=== PATIENT | male | born 1935 | race Two or more races ===

== ENCOUNTER 2023-09-06 19:27 | Emergency (ER) | payer OTHER ==
[~2023-09-06] VITALS: Ht 172.7 cm; Wt 86.7 kg
[2023-09-06 20:33] LABS: Basophils # (auto) 0.1 10 ^3/uL (0-0.2); Basophils % (auto) 1.2 % (0.0-2.0); Eosinophils # (auto) 0.5 10 ^3/uL (0-0.8); Hemoglobin 8.9 g/dL (13.5-17.5); Lymphocytes % (auto) 24.3 % (10.0-50.0); Mean Corpuscular Hemoglobin 28.9 pg (28.0-32.0); Mean Corpuscular Hgb Conc. 31.9 g/dL (32.0-36.0); Mean Corpuscular Volume 90.5 fL (80.0-100.0); Monocytes # (auto) 0.8 10 ^3/uL (0-1.3); Monocytes % (auto) 9.5 % (0.0-12.0); Neutrophils # (auto) 4.9 10 ^3/uL (1.6-8.6); Nucleated Red Blood Cells % 0.1 %; Red Blood Cells 3.09 10^6/uL (4.5-5.90); Red Cell Distribution Width 15.4 % (11.8-14.3); White Blood Cell 8.3 10^3/uL (4.4-10.8)
[2023-09-06 20:54] LABS: Alanine Aminotransferase 15 U/L (7-40); Albumin 4.5 g/dL (3.2-4.8); Alkaline Phosphatase 81 U/L (46-116); Anion Gap 9 (5-15); Aspartate Aminotransferase 25 U/L (13-40); BUN/Creatinine Ratio 24.6 (10.0-20.0); Bilirubin, Total 0.7 mg/dL (0.2-1.0); Blood Urea Nitrogen 32 mg/dL (9-23); Calcium 9.4 mg/dL (8.5-10.1); Carbon Dioxide 26 mmol/L (20-30); Chloride 106 mmol/L (98-107); Glucose 157 mg/dL (74-106); Potassium 4.5 mmol/L (3.5-5.1); Sodium 141 mmol/L (136-145); Total Protein 7.7 g/dL (5.7-8.2)
[2023-09-06 21:36] LABS: Large Platelets FEW; Platelet Estimate Decreased
[2023-09-06] MEDS ORDERED: SODIUM CHLORIDE 0.9% 500 ML IV ONE (23:00)
[2023-09-07 01:20] VITALS: BP 126/57; PULSE 117; RESP 18; TEMP 98.4; O2SAT 98
[2023-09-07] MEDS ORDERED: CEPH500C PO (01:45)
[2023-09-07] MEDS ORDERED: SODIUM CHL 0.9% 500 ML IV ONE ×2 (02:30→02:35)
[2023-09-07 03:05] LABS: Urine Bacteria FEW /hpf (None Seen); Urine Blood 3+ /uL (Negative); Urine Clarity HAZY (Clear); Urine Color Yellow (Yellow); Urine Protein, UAD 1+ (Negative); Urine Specific Gravity 1.017 (1.001-1.035); Urine Urobilinogen Normal (Negative); Urine WBC 219 /hpf (0 - 3); Urine WBC Clumps PRESENT /hpf (None Seen); Urine pH 5.5 (5.0-8.0)
== END 2023-09-07 07:02 | disposition home or self-care (01) ==
LOC: ER 19:27
DX: D64.9 Anemia, unspecified (principal); R31.0 Gross hematuria
CPT/HCPCS: 36415; 71045; 80053; 81001; 83880; 84484; 85025; 93005; 96360; 99285; J7040

== ENCOUNTER 2023-10-11 22:26 | Emergency (ER) | payer OTHER ==
[~2023-10-11] VITALS: Ht 177.8 cm; Wt 87.7 kg
[~2023-10-11 22:26] MED LIST: CEPH500C PO
[2023-10-11 22:27] VITALS: BP 158/78; PULSE 137; RESP 18; O2SAT 97
== END 2023-10-11 23:21 | disposition left against medical advice (07) ==
LOC: ER 22:26
DX: R33.9 Retention of urine, unspecified (principal); Z53.21 Procedure and treatment not carried out due to patient leaving prior to being seen by health care provider

== ENCOUNTER 2024-03-06 16:02 | Inpatient (IN) | payer OTHER ==
[~2024-03-06] VITALS: Ht 182.9 cm; Wt 32.1 kg
[2024-03-06 19:48] LABS: Basophils # (auto) 0.1 10 ^3/uL (0-0.2); Eosinophils # (auto) 0 10 ^3/uL (0-0.8); Hemoglobin 7.5 g/dL (13.5-17.5); Mean Corpuscular Volume 72.8 fL (80.0-100.0); Monocytes # (auto) 0.8 10 ^3/uL (0-1.3)
[2024-03-06 19:50] LABS: Basophils % (auto) 1.4 % (0.0-2.0); Eosinophils % (auto) 0.2 % (0.0-7.0); Hematocrit 24.9 % (41.0-53.0); Lymphocytes # (auto) 1.1 10 ^3/uL (0.4-5.4); Lymphocytes % (auto) 13.6 % (10.0-50.0); Mean Corpuscular Hemoglobin 21.8 pg (28.0-32.0); Monocytes % (auto) 10.4 % (0.0-12.0); Neutrophils # (auto) 5.8 10 ^3/uL (1.6-8.6); Neutrophils % (auto) 74.4 % (37.0-80.0); Nucleated Red Blood Cells % 0.1 %; Red Blood Cells 3.42 10^6/uL (4.5-5.90); Red Cell Distribution Width 19.2 % (11.8-14.3); White Blood Cell 7.8 10^3/uL (4.4-10.8)
[2024-03-06 20:07] LABS: INR 1.06 (0.9-1.15); Partial Thromboplastin Time 24.2 SEC (24.5-34.5); Prothrombin Time 11.2 sec (9.3-11.8)
[2024-03-06 20:08] LABS: Alanine Aminotransferase 12 U/L (7-40); Albumin 4.1 g/dL (3.2-4.8); Alkaline Phosphatase 91 U/L (46-116); Anion Gap 11 (5-15); Aspartate Aminotransferase 17 U/L (13-40); BUN/Creatinine Ratio 17.5 (10.0-20.0); Bilirubin, Total 0.7 mg/dL (0.2-1.0); Blood Urea Nitrogen 32 mg/dL (9-23); Calcium 9.4 mg/dL (8.7-10.4); Carbon Dioxide 20 mmol/L (20-30); Chloride 104 mmol/L (98-107); Glucose 304 mg/dL (74-106); Lipase 48 U/L (12-53); Potassium 4.2 mmol/L (3.5-5.1); Sodium 135 mmol/L (136-145); Total Protein 7.6 g/dL (5.7-8.2)
[2024-03-06 20:13] LABS: Lactic Acid w/Reflex 4.8 mmol/L (0.4-2.0)
[2024-03-06] MEDS ORDERED: ACETAMINOPHEN 325 MG TAB PO PRN (21:30)
[2024-03-06] MEDS ORDERED: ONDANSETRON HCL 4 MG/2 ML VIAL IV PRN (21:30)
[2024-03-06 21:53] LABS: Hemoglobin 7.6 g/dL (13.5-17.5)
[2024-03-06 21:54] LABS: Hematocrit 25.1 % (41.0-53.0)
[2024-03-07] VITALS (13 sets, daily range): BP systolic 80–132; BP diastolic 41–88; PULSE 80–120; RESP 15–22; TEMP 97.3–99.5; O2SAT 94–100
[2024-03-07] MEDS: SODIUM CHLORIDE 0.9% 1,000 ML IV ONE (00:46)
[2024-03-07] MEDS: HYDROcodone-ACET 5/325MG TAB PO PRN (00:46)
[2024-03-07] MEDS: PIPERACILLIN-TAZOB 3.375GM 100 ML IV ONE (02:17)
[2024-03-07] MEDS ORDERED: METF-372 PO (02:56)
[2024-03-07 05:57] LABS: Alanine Aminotransferase 13 U/L (7-40); Albumin 3.6 g/dL (3.2-4.8); Alkaline Phosphatase 81 U/L (46-116); Anion Gap 13 (5-15); Aspartate Aminotransferase 16 U/L (13-40); BUN/Creatinine Ratio 14.8 (10.0-20.0); Bilirubin, Total 0.9 mg/dL (0.2-1.0); Carbon Dioxide 18 mmol/L (20-30); Chloride 106 mmol/L (98-107); Potassium 4.3 mmol/L (3.5-5.1); Sodium 137 mmol/L (136-145); Total Protein 6.5 g/dL (5.7-8.2)
[2024-03-07 06:01] LABS: Blood Urea Nitrogen 43 mg/dL (9-23); Glucose 188 mg/dL (74-106)
[2024-03-07 06:09] LABS: Basophils # (auto) 0.1 10 ^3/uL (0-0.2); Basophils % (auto) 1.2 % (0.0-2.0); Eosinophils # (auto) 0 10 ^3/uL (0-0.8); Eosinophils % (auto) 0.5 % (0.0-7.0); Hematocrit 22.4 % (41.0-53.0); Lymphocytes # (auto) 0.4 10 ^3/uL (0.4-5.4); Lymphocytes % (auto) 6.5 % (10.0-50.0); Mean Corpuscular Hemoglobin 21.6 pg (28.0-32.0); Mean Corpuscular Hgb Conc. 30.1 g/dL (32.0-36.0); Mean Corpuscular Volume 71.7 fL (80.0-100.0); Monocytes # (auto) 0.1 10 ^3/uL (0-1.3); Monocytes % (auto) 1.6 % (0.0-12.0); Neutrophils # (auto) 5.8 10 ^3/uL (1.6-8.6); Neutrophils % (auto) 90.2 % (37.0-80.0); Nucleated Red Blood Cells % 0.4 %; Red Blood Cells 3.13 10^6/uL (4.5-5.90); Red Cell Distribution Width 19.4 % (11.8-14.3); White Blood Cell 6.4 10^3/uL (4.4-10.8)
[2024-03-07 06:15] LABS: Hemoglobin 6.8 g/dL (13.5-17.5)
[2024-03-07 06:47] LABS: Hypochromia Moderate; Platelet Estimate Decreased
[2024-03-07 06:48] LABS: Ovalocytes FEW; Stomatocytes Few
[2024-03-07] MEDS: cefTRIAXone 1GM/50ML D5W 50 ML IV SCH (09:00)
[2024-03-07] MEDS: SODIUM CHLORIDE 0.9% 1,000 ML IV SCH (10:15)
[2024-03-07] MEDS: SODIUM CHLORIDE 0.9% 500 ML IV ONE ×2 (10:30→19:56)
[2024-03-07] MEDS ORDERED: DexAMETHasone SOD PHOS 10MG/1ML VIAL INJ ONE (14:37)
[2024-03-07] MEDS ORDERED: ONDANSETRON HCL 4 MG/2 ML VIAL ONE (14:37)
[2024-03-07] MEDS ORDERED: GLYCOPYRROLATE 0.2 MG/ML 1ML VIAL ONE (14:37)
[2024-03-07] MEDS ORDERED: PROPOFOL 10 MG/ML 20 ML IV ONE (14:37)
[2024-03-07] MEDS ORDERED: LIDOCAINE 2% (LOCAL ANESTH.) PF 5ml SDV ONE (14:37)
[2024-03-07] MEDS ORDERED: ROCURONIUM 10MG/ML 10ML VIAL IV ONE (14:37)
[2024-03-07 14:57] LABS: Basophils # (auto) 0 10 ^3/uL (0-0.2); Basophils % (auto) 0.2 % (0.0-2.0); Eosinophils # (auto) 0 10 ^3/uL (0-0.8); Hemoglobin 7.1 g/dL (13.5-17.5)
[2024-03-07 15:01] LABS: Hematocrit 23.2 % (41.0-53.0); Lymphocytes # (auto) 1.1 10 ^3/uL (0.4-5.4); Lymphocytes % (auto) 5.4 % (10.0-50.0); Mean Corpuscular Hgb Conc. 30.6 g/dL (32.0-36.0); Mean Corpuscular Volume 75.2 fL (80.0-100.0); Monocytes # (auto) 1.8 10 ^3/uL (0-1.3); Monocytes % (auto) 9.2 % (0.0-12.0); Neutrophils # (auto) 16.6 10 ^3/uL (1.6-8.6); Neutrophils % (auto) 85.2 % (37.0-80.0); Red Blood Cells 3.08 10^6/uL (4.5-5.90); White Blood Cell 19.5 10^3/uL (4.4-10.8)
[2024-03-07 15:17] LABS: Red Cell Distribution Width 20.4 % (11.8-14.3)
[2024-03-07] MEDS ORDERED: fentaNYL CITRATE 100 MCG/2 ML VL ONE (15:32)
[2024-03-07] MEDS ORDERED: PHENYLEPHRINE HCL 10 MG/ML VL ONE ×2 (15:33→16:13)
[2024-03-07] MEDS ORDERED: SUGAMMADEX 200mg/2ml Vial (100MG/ML) IV ONE (15:33)
[2024-03-07] MEDS ORDERED: SODIUM CHLORIDE LOCK 10 ML ONE ×2 (15:33→16:13)
[2024-03-07] MEDS ORDERED: KETAMINE 50mg/ML 1ml syringe ONE (15:36)
[2024-03-07] MEDS: CIPROFLOXACIN 400MG/200ML 200 ML IV ONE (15:43)
[2024-03-07] MEDS ORDERED: ePHEDrine SULFATE 50 MG/ML AMP IV PRN (17:30)
[2024-03-07] MEDS ORDERED: LABETALOL HCL 5 MG/ML 4ML SYRINGE IV PRN (17:30)
[2024-03-07] MEDS ORDERED: fentaNYL CITRATE 100 MCG/2 ML VL IV PRN (17:30)
[2024-03-07] MEDS ORDERED: NALOXONE HCL 0.4 MG/ML VIAL IV PRN (17:30)
[2024-03-07] MEDS ORDERED: FLUMAZENIL 0.1 MG/ML INJ 10ML MDV IV PRN (17:30)
[2024-03-07] MEDS ORDERED: hydrALAZINE HCL 20 MG/ML VL IV PRN (17:30)
[2024-03-07] MEDS ORDERED: ONDANSETRON HCL 4 MG/2 ML VIAL IV PRN (17:30)
[2024-03-07] MEDS ORDERED: HYDROmorphone HCL 2 MG/ML VL/or syr IV PRN (17:30)
[2024-03-07 19:56] LABS: Basophils # (auto) 0 10 ^3/uL (0-0.2); Basophils % (auto) 0.3 % (0.0-2.0); Eosinophils # (auto) 0 10 ^3/uL (0-0.8); Hemoglobin 7.7 g/dL (13.5-17.5); Lymphocytes # (auto) 0.8 10 ^3/uL (0.4-5.4); Lymphocytes % (auto) 4.6 % (10.0-50.0); Mean Corpuscular Hemoglobin 23.6 pg (28.0-32.0); Mean Corpuscular Hgb Conc. 30.7 g/dL (32.0-36.0); Mean Corpuscular Volume 76.8 fL (80.0-100.0); Monocytes # (auto) 0.7 10 ^3/uL (0-1.3); Monocytes % (auto) 4.2 % (0.0-12.0); Neutrophils # (auto) 15.5 10 ^3/uL (1.6-8.6); Neutrophils % (auto) 90.9 % (37.0-80.0); Nucleated Red Blood Cells % 0.1 %; Red Blood Cells 3.26 10^6/uL (4.5-5.90); Red Cell Distribution Width 19.5 % (11.8-14.3)
[2024-03-08] VITALS (16 sets, daily range): BP systolic 89–103; BP diastolic 45–65; PULSE 75–95; RESP 16–19; TEMP 97.7–98.9; O2SAT 93–98
[2024-03-08 07:42] LABS: Alanine Aminotransferase 10 U/L (7-40); Albumin 3.2 g/dL (3.2-4.8); Alkaline Phosphatase 53 U/L (46-116); Anion Gap 10 (5-15); Aspartate Aminotransferase 16 U/L (13-40); BUN/Creatinine Ratio 14.4 (10.0-20.0); Blood Urea Nitrogen 41 mg/dL (9-23); Calcium 8.1 mg/dL (8.7-10.4); Carbon Dioxide 17 mmol/L (20-30); Chloride 108 mmol/L (98-107); Glucose 213 mg/dL (74-106); Magnesium 1.6 mg/dL (1.6-2.6); Sodium 135 mmol/L (136-145)
[2024-03-08 07:43] LABS: Total Protein 5.9 g/dL (5.7-8.2)
[2024-03-08 08:01] LABS: Basophils # (auto) 0 10 ^3/uL (0-0.2); Hemoglobin 7.5 g/dL (13.5-17.5)
[2024-03-08 08:03] LABS: Basophils % (auto) 0.1 % (0.0-2.0); Eosinophils # (auto) 0 10 ^3/uL (0-0.8); Lymphocytes # (auto) 0.9 10 ^3/uL (0.4-5.4); Lymphocytes % (auto) 5.2 % (10.0-50.0); Mean Corpuscular Hgb Conc. 31.3 g/dL (32.0-36.0); Mean Corpuscular Volume 76.7 fL (80.0-100.0); Monocytes # (auto) 1.1 10 ^3/uL (0-1.3); Monocytes % (auto) 6.4 % (0.0-12.0); Neutrophils # (auto) 14.8 10 ^3/uL (1.6-8.6); Neutrophils % (auto) 88.3 % (37.0-80.0); Red Blood Cells 3.13 10^6/uL (4.5-5.90); Red Cell Distribution Width 19.6 % (11.8-14.3); White Blood Cell 16.8 10^3/uL (4.4-10.8)
[2024-03-08 09:12] LABS: Hypochromia Slight
[2024-03-08 09:13] LABS: Platelet Estimate Decreased
[2024-03-08] MEDS: LIDOCAINE 2% JELLY 11ml (GLYDO) ONE (17:54)
[2024-03-09] VITALS (8 sets, daily range): BP systolic 95–146; BP diastolic 60–70; PULSE 65–73; RESP 16–20; TEMP 97.5–98.4; O2SAT 95–96
[2024-03-09 05:49] LABS: Basophils # (auto) 0 10 ^3/uL (0-0.2); Basophils % (auto) 0.1 % (0.0-2.0); Eosinophils # (auto) 0 10 ^3/uL (0-0.8); Lymphocytes # (auto) 1.5 10 ^3/uL (0.4-5.4); Mean Corpuscular Hemoglobin 24.1 pg (28.0-32.0)
[2024-03-09 05:52] LABS: Eosinophils % (auto) 0.2 % (0.0-7.0); Hematocrit 27.6 % (41.0-53.0); Hemoglobin 8.5 g/dL (13.5-17.5); Lymphocytes % (auto) 9.3 % (10.0-50.0); Mean Corpuscular Hgb Conc. 30.9 g/dL (32.0-36.0); Mean Corpuscular Volume 77.9 fL (80.0-100.0); Monocytes # (auto) 1.2 10 ^3/uL (0-1.3); Monocytes % (auto) 7.7 % (0.0-12.0); Neutrophils # (auto) 13.2 10 ^3/uL (1.6-8.6); Neutrophils % (auto) 82.7 % (37.0-80.0); Nucleated Red Blood Cells % 0.5 %; Red Blood Cells 3.54 10^6/uL (4.5-5.90); Red Cell Distribution Width 20.1 % (11.8-14.3); White Blood Cell 15.9 10^3/uL (4.4-10.8)
[2024-03-09 06:18] LABS: Alanine Aminotransferase 11 U/L (7-40); Albumin 3.2 g/dL (3.2-4.8); Alkaline Phosphatase 57 U/L (46-116)
[2024-03-09 06:19] LABS: Anion Gap 6 (5-15); Aspartate Aminotransferase 15 U/L (13-40); BUN/Creatinine Ratio 20.8 (10.0-20.0); Bilirubin, Total 0.7 mg/dL (0.2-1.0); Blood Urea Nitrogen 40 mg/dL (9-23); Calcium 8.1 mg/dL (8.7-10.4); Carbon Dioxide 18 mmol/L (20-30); Chloride 112 mmol/L (98-107); Glucose 154 mg/dL (74-106); Magnesium 1.7 mg/dL (1.6-2.6); Potassium 4.8 mmol/L (3.5-5.1); Sodium 136 mmol/L (136-145); Total Protein 5.9 g/dL (5.7-8.2)
[2024-03-09] MEDS: LACTULOSE 20Gm/30ML SOLN PO ONE (10:15)
[2024-03-09] MEDS: DOCUSATE SOD 100 MG CAP PO ONE (10:15)
[2024-03-09] MEDS: DOCUSATE SOD 100 MG CAP PO SCH (22:19)
[2024-03-10] VITALS (9 sets, daily range): BP systolic 118–128; BP diastolic 57–70; PULSE 60–76; RESP 16–19; TEMP 97.7–98.7; O2SAT 95–97
[2024-03-10 06:50] LABS: Basophils # (auto) 0.1 10 ^3/uL (0-0.2); Eosinophils # (auto) 0.2 10 ^3/uL (0-0.8); Eosinophils % (auto) 1.7 % (0.0-7.0); Lymphocytes # (auto) 1.4 10 ^3/uL (0.4-5.4); Mean Corpuscular Hemoglobin 24.2 pg (28.0-32.0); Red Cell Distribution Width 20.4 % (11.8-14.3)
[2024-03-10 06:54] LABS: Basophils % (auto) 0.6 % (0.0-2.0); Chloride 112 mmol/L (98-107); Hematocrit 27.9 % (41.0-53.0); Hemoglobin 8.6 g/dL (13.5-17.5); Lymphocytes % (auto) 11.9 % (10.0-50.0); Mean Corpuscular Hgb Conc. 30.7 g/dL (32.0-36.0); Mean Corpuscular Volume 78.6 fL (80.0-100.0); Monocytes % (auto) 8.1 % (0.0-12.0); Neutrophils # (auto) 9.4 10 ^3/uL (1.6-8.6); Neutrophils % (auto) 77.7 % (37.0-80.0); Nucleated Red Blood Cells % 0.3 %; Potassium 4.8 mmol/L (3.5-5.1); Red Blood Cells 3.56 10^6/uL (4.5-5.90); Sodium 137 mmol/L (136-145)
[2024-03-10 06:55] LABS: Anion Gap 7 (5-15); Carbon Dioxide 18 mmol/L (20-30)
[2024-03-10 07:00] LABS: BUN/Creatinine Ratio 17.3 (10.0-20.0); Glucose 132 mg/dL (74-106)
[2024-03-10 07:02] LABS: Blood Urea Nitrogen 26 mg/dL (9-23)
[2024-03-11] VITALS (9 sets, daily range): BP systolic 93–147; BP diastolic 39–65; PULSE 60–88; RESP 17–19; TEMP 97.6–98.9; O2SAT 94–100
[2024-03-11 05:46] LABS: Basophils # (auto) 0.1 10 ^3/uL (0-0.2); Basophils % (auto) 0.7 % (0.0-2.0); Eosinophils # (auto) 0.3 10 ^3/uL (0-0.8); Hemoglobin 8.7 g/dL (13.5-17.5); Lymphocytes # (auto) 1.2 10 ^3/uL (0.4-5.4)
[2024-03-11 05:50] LABS: Hematocrit 27.5 % (41.0-53.0); Lymphocytes % (auto) 12.1 % (10.0-50.0); Mean Corpuscular Hemoglobin 24.2 pg (28.0-32.0); Mean Corpuscular Hgb Conc. 31.7 g/dL (32.0-36.0); Mean Corpuscular Volume 76.5 fL (80.0-100.0); Monocytes % (auto) 10.5 % (0.0-12.0); Neutrophils # (auto) 7.1 10 ^3/uL (1.6-8.6); Neutrophils % (auto) 73.7 % (37.0-80.0); Nucleated Red Blood Cells % 0.7 %; Red Blood Cells 3.59 10^6/uL (4.5-5.90); White Blood Cell 9.6 10^3/uL (4.4-10.8)
[2024-03-11 05:51] LABS: Red Cell Distribution Width 20.4 % (11.8-14.3)
[2024-03-11 05:55] LABS: Chloride 110 mmol/L (98-107); Potassium 4.3 mmol/L (3.5-5.1); Sodium 138 mmol/L (136-145)
[2024-03-11 05:56] LABS: Anion Gap 8 (5-15); Carbon Dioxide 20 mmol/L (20-30)
[2024-03-11 05:57] LABS: Calcium 8.4 mg/dL (8.5-10.1)
[2024-03-11 06:01] LABS: BUN/Creatinine Ratio 18.3 (10.0-20.0); Blood Urea Nitrogen 26 mg/dL (9-23); Glucose 126 mg/dL (74-106)
[2024-03-11 06:27] LABS: Anisocytosis Slight; Giant Platelets Few; Platelet Estimate Decreased
[2024-03-11] MEDS ORDERED: DEXTROSE (50%) 50ML SYRG IV PRN (20:45)
[2024-03-11] MEDS: InsuLIN REG 1unit/0.01ml Soln (100units/ml) SC SCH (21:02)
[2024-03-11] MEDS: ACCU-CHEK COMFORT CURVE STRIP VI SCH (21:04)
[2024-03-12] VITALS (9 sets, daily range): BP systolic 91–145; BP diastolic 46–71; PULSE 52–82; RESP 16–18; TEMP 97.7–98.2; O2SAT 93–97
[2024-03-12] MEDS: InsuLIN REG 1unit/0.01ml Soln (100units/ml) SC SCH (05:32)
[2024-03-13 01:00] VITALS: BP 106/64; PULSE 111; RESP 17; TEMP 99; O2SAT 95
[2024-03-13 05:00] VITALS: BP 109/46; PULSE 82; RESP 17; TEMP 98.6; O2SAT 94
[2024-03-13 08:00] VITALS: PULSE 74; PULSE 82; RESP 17; O2SAT 93
[2024-03-13 09:00] VITALS: BP 122/57; PULSE 80; RESP 16; TEMP 98.8; O2SAT 92
[2024-03-13 13:00] VITALS: BP 149/65; PULSE 85; RESP 17; TEMP 98.4; O2SAT 95
== END 2024-03-13 16:21 | disposition home or self-care (01) | DRG 668 ==
LOC: ER 16:02 → OVERFLOW 21:27 → CENTRAL 23:38 → TELE-CENTR 03-07 14:36
PROVIDERS: ADMIT Nurse Practitioner; ATTEND Internal Medicine Geriatric Medicine
PROC: 0TCB8ZZ Extirpation of Matter from Bladder, Via Natural or Artificial Opening Endoscopic (ICD-10-PCS; 2024-03-07)
PROC: 30233N1 Transfusion of Nonautologous Red Blood Cells into Peripheral Vein, Percutaneous Approach (ICD-10-PCS; 2024-03-07)
PROC: 0TBB8ZZ Excision of Bladder, Via Natural or Artificial Opening Endoscopic (ICD-10-PCS; principal; 2024-03-07 16:01)
PROC: 0T7D8ZZ Dilation of Urethra, Via Natural or Artificial Opening Endoscopic (ICD-10-PCS; 2024-03-07 16:01)
PROC: 30233R1 Transfusion of Nonautologous Platelets into Peripheral Vein, Percutaneous Approach (ICD-10-PCS; 2024-03-08)
DX: N32.3 Diverticulum of bladder (principal); N17.0 Acute kidney failure with tubular necrosis; R57.1 Hypovolemic shock; D62 Acute posthemorrhagic anemia; N39.0 Urinary tract infection, site not specified; N13.8 Other obstructive and reflux uropathy; E87.20 Acidosis, unspecified; I10 Essential (primary) hypertension; D49.4 Neoplasm of unspecified behavior of bladder; K59.00 Constipation, unspecified; N32.89 Other specified disorders of bladder; N40.1 Benign prostatic hyperplasia with lower urinary tract symptoms; R33.8 Other retention of urine; N35.819 Other urethral stricture, male, unspecified site; Z90.79 Acquired absence of other genital organ(s); Z79.899 Other long term (current) drug therapy; R31.0 Gross hematuria
CPT/HCPCS: 36415; 71045; 74176; 76856; 80048; 80053; 82962; 83605; 83690; 83735; 84484; 85014; 85018; 85025; 85610; 85730; 86850; 86900; 86901; 86920; 87040; 97110; 97116; 97163; 97530; G0378; J1100; J1815; J2001; J2405; J2543; J2704

== ENCOUNTER 2024-03-27 13:42 | Inpatient (IN) | payer OTHER ==
[~2024-03-27] VITALS: Ht 175.3 cm; Wt 87.6 kg
[~2024-03-27 13:42] MED LIST changes: -CEPH500C PO; +METF-372 PO
[2024-03-27] MEDS: SODIUM CHLORIDE 0.9% 1,000 ML IV ONE (17:00)
[2024-03-27] MEDS: SODIUM CHLORIDE 0.9% 2,100 ML IV ONE (17:55)
[2024-03-27] MEDS: VANCOMYCIN 1GM/200ML 200 ML IV ONE (17:55)
[2024-03-27 17:58] LABS: Basophils # (auto) 0.1 10 ^3/uL (0-0.2); Eosinophils # (auto) 0 10 ^3/uL (0-0.8); Lymphocytes # (auto) 0.7 10 ^3/uL (0.4-5.4); Mean Corpuscular Hemoglobin 24.5 pg (28.0-32.0); Mean Corpuscular Hgb Conc. 31.9 g/dL (32.0-36.0); Neutrophils # (auto) 7.5 10 ^3/uL (1.6-8.6); White Blood Cell 9.2 10^3/uL (4.4-10.8)
[2024-03-27 18:00] LABS: Basophils % (auto) 0.7 % (0.0-2.0); Eosinophils % (auto) 0.2 % (0.0-7.0); Hemoglobin 10.5 g/dL (13.5-17.5); Lymphocytes % (auto) 7.6 % (10.0-50.0); Mean Corpuscular Volume 76.8 fL (80.0-100.0); Monocytes % (auto) 10.4 % (0.0-12.0); Neutrophils % (auto) 81.1 % (37.0-80.0); Red Cell Distribution Width 23.6 % (11.8-14.3)
[2024-03-27] MEDS: ACETAMINOPHEN 325 MG TAB PO ONE (18:02)
[2024-03-27 18:17] LABS: Lactic Acid w/Reflex 3.1 mmol/L (0.4-2.0)
[2024-03-27 18:20] LABS: INR 1.11 (0.9-1.15); Partial Thromboplastin Time 26.2 SEC (24.5-34.5); Prothrombin Time 11.7 sec (9.3-11.8)
[2024-03-27 18:32] LABS: Alanine Aminotransferase 23 U/L (7-40); Alkaline Phosphatase 90 U/L (46-116); Anion Gap 11 (5-15); Aspartate Aminotransferase 37 U/L (13-40); Bilirubin, Total 0.8 mg/dL (0.2-1.0); Blood Urea Nitrogen 32 mg/dL (9-23); Carbon Dioxide 21 mmol/L (20-30); Chloride 102 mmol/L (98-107); Glucose 151 mg/dL (74-106); Potassium 4.5 mmol/L (3.5-5.1); Sodium 134 mmol/L (136-145); Total Protein 8.6 g/dL (5.7-8.2)
[2024-03-27] MEDS ORDERED: VANCOMYCIN PER PHARMACY 0 MG IV SCH (18:45)
[2024-03-27] MEDS: PIPERACILLIN-TAZO 4.5GM 100 ML IV ONE (19:44)
[2024-03-27] MEDS ORDERED: ONDANSETRON HCL 4 MG/2 ML VIAL IV PRN (20:15)
[2024-03-27] MEDS ORDERED: DOCUSATE SOD 100 MG CAP PO PRN (20:15)
[2024-03-27] MEDS ORDERED: MORPHINE SULFATE INJ 2 MG/ml SYRG IV PRN ×2 (20:15)
[2024-03-27] MEDS ORDERED: NITROGLYCERIN 0.4 MG SL TAB SL PRN (20:15)
[2024-03-27] MEDS: SODIUM CHLORIDE 0.9% 1,000 ML IV SCH (20:15)
[2024-03-27] MEDS ORDERED: DEXTROSE (50%) 50ML SYRG IV PRN (20:30)
[2024-03-27] MEDS ORDERED: hydrALAZINE HCL 20 MG/ML VL IV PRN (20:30)
[2024-03-27] MEDS: HYDROcodone-ACET 5/325MG TAB PO PRN (21:37)
[2024-03-27] MEDS: InsuLIN REG 1unit/0.01ml Soln (100units/ml) SC SCH (22:00)
[2024-03-27] MEDS ORDERED: PIPERACILLIN-TAZOB 3.375GM 100 ML IV SCH (22:00)
[2024-03-27] MEDS: ACCU-CHEK COMFORT CURVE STRIP VI SCH (22:26)
[2024-03-27 23:10] VITALS: PULSE 97; O2SAT 94
[2024-03-27 23:55] LABS: Urine Bacteria MANY /hpf (None Seen); Urine Blood 2+ /uL (Negative); Urine Clarity Turbid (Clear); Urine Color Colorless (Yellow); Urine Mucus FEW (None Seen); Urine Protein, UAD 1+ (Negative); Urine Urobilinogen Normal (Negative); Urine WBC 336 /hpf (0 - 3)
[2024-03-28] VITALS (8 sets, daily range): BP systolic 137–165; BP diastolic 71–80; PULSE 70–116; RESP 14–18; TEMP 97.5–100.1; O2SAT 93–98
[2024-03-28] MEDS ORDERED: PIPERACILLIN-TAZOB 3.375GM 100 ML IV SCH (04:00)
[2024-03-28] MEDS: ceFAZolin 1GM/50ML 50 ML IV SCH (06:00)
[2024-03-28 07:07] LABS: Basophils # (auto) 0.1 10 ^3/uL (0-0.2)
[2024-03-28 07:14] LABS: Basophils % (auto) 0.9 % (0.0-2.0); Eosinophils # (auto) 0.1 10 ^3/uL (0-0.8); Hematocrit 28.5 % (41.0-53.0); Hemoglobin 9.2 g/dL (13.5-17.5); Lymphocytes % (auto) 14.3 % (10.0-50.0); Mean Corpuscular Hgb Conc. 32.3 g/dL (32.0-36.0); Mean Corpuscular Volume 77.3 fL (80.0-100.0); Monocytes % (auto) 14.5 % (0.0-12.0); Neutrophils # (auto) 4.8 10 ^3/uL (1.6-8.6); Neutrophils % (auto) 68.3 % (37.0-80.0); Red Blood Cells 3.69 10^6/uL (4.5-5.90)
[2024-03-28 07:32] LABS: Alanine Aminotransferase 22 U/L (7-40); Alkaline Phosphatase 78 U/L (46-116); Anion Gap 8 (5-15); Calcium 8.8 mg/dL (8.5-10.1); Carbon Dioxide 22 mmol/L (20-30); Chloride 105 mmol/L (98-107); Glucose 136 mg/dL (74-106); Potassium 4.5 mmol/L (3.5-5.1); Sodium 135 mmol/L (136-145)
[2024-03-28 07:33] LABS: BUN/Creatinine Ratio 27.2 (10.0-20.0); Blood Urea Nitrogen 31 mg/dL (9-23)
[2024-03-28 07:34] LABS: Albumin 3.3 g/dL (3.2-4.8)
[2024-03-28 07:35] LABS: Aspartate Aminotransferase 30 U/L (13-40); Total Protein 6.7 g/dL (5.7-8.2)
[2024-03-28 07:36] LABS: Red Cell Distribution Width 23.2 % (11.8-14.3)
[2024-03-28 09:19] LABS: Platelet Estimate Adequate
[2024-03-28 09:20] LABS: Anisocytosis Slight; Large Platelets FEW; Macrocytosis Slight
[2024-03-28] MEDS: PANTOPRAZOLE 40 MG/10 ML VIAL INJ IV SCH (10:34)
[2024-03-28] MEDS: ENOXAPARIN SOD 30 MG/0.3 ML SYRINGE SC SCH (10:34)
[2024-03-28] MEDS: VANCOMYCIN 1GM/200ML 200 ML IV SCH (10:35)
[2024-03-29] VITALS (10 sets, daily range): BP systolic 98–149; BP diastolic 62–88; PULSE 95–122; RESP 15–22; TEMP 97.9–99.4; O2SAT 94–100
[2024-03-29] MEDS: ACETAMINOPHEN 325 MG TAB PO PRN (01:44)
[2024-03-29] MEDS: hydrALAZINE HCL 20 MG/ML VL IV PRN (01:46)
[2024-03-29 06:27] LABS: Chloride 101 mmol/L (98-107); Potassium 3.7 mmol/L (3.5-5.1)
[2024-03-29 06:28] LABS: Anion Gap 8 (5-15); Calcium 9.3 mg/dL (8.7-10.4); Carbon Dioxide 21 mmol/L (20-30)
[2024-03-29 06:33] LABS: Blood Urea Nitrogen 16 mg/dL (9-23); Glucose 149 mg/dL (74-106)
[2024-03-29 06:34] LABS: Basophils # (auto) 0.1 10 ^3/uL (0-0.2); Eosinophils # (auto) 0.1 10 ^3/uL (0-0.8); Eosinophils % (auto) 0.9 % (0.0-7.0)
[2024-03-29 06:36] LABS: Basophils % (auto) 0.7 % (0.0-2.0); Hematocrit 30.2 % (41.0-53.0); Hemoglobin 9.6 g/dL (13.5-17.5); Lymphocytes # (auto) 1.1 10 ^3/uL (0.4-5.4); Lymphocytes % (auto) 12.6 % (10.0-50.0); Mean Corpuscular Hemoglobin 24.3 pg (28.0-32.0); Mean Corpuscular Hgb Conc. 31.8 g/dL (32.0-36.0); Mean Corpuscular Volume 76.4 fL (80.0-100.0); Monocytes # (auto) 1.3 10 ^3/uL (0-1.3); Monocytes % (auto) 14.7 % (0.0-12.0); Neutrophils # (auto) 6.3 10 ^3/uL (1.6-8.6); Neutrophils % (auto) 71.1 % (37.0-80.0); Nucleated Red Blood Cells % 0.1 %; Red Blood Cells 3.95 10^6/uL (4.5-5.90); White Blood Cell 8.9 10^3/uL (4.4-10.8)
[2024-03-29 06:47] LABS: Sodium 130 mmol/L (136-145)
[2024-03-29] MEDS: CEFEPIME 1GM/ 50ML 50 ML IV SCH (14:24)
[2024-03-29] MEDS: dilTIAZem 25 MG/5 ML VIAL IV ONE (22:40)
[2024-03-30] VITALS (9 sets, daily range): BP systolic 106–139; BP diastolic 59–73; PULSE 109–133; RESP 15–20; TEMP 97.8–100.3; O2SAT 93–96
[2024-03-30 06:50] LABS: Basophils # (auto) 0.1 10 ^3/uL (0-0.2); Basophils % (auto) 0.7 % (0.0-2.0); Eosinophils # (auto) 0.2 10 ^3/uL (0-0.8); Eosinophils % (auto) 1.9 % (0.0-7.0); Hematocrit 29.9 % (41.0-53.0); Hemoglobin 9.7 g/dL (13.5-17.5); Lymphocytes # (auto) 1.2 10 ^3/uL (0.4-5.4); Lymphocytes % (auto) 12.3 % (10.0-50.0); Mean Corpuscular Hemoglobin 24.6 pg (28.0-32.0); Mean Corpuscular Hgb Conc. 32.2 g/dL (32.0-36.0); Mean Corpuscular Volume 76.2 fL (80.0-100.0); Monocytes # (auto) 1.2 10 ^3/uL (0-1.3); Monocytes % (auto) 11.7 % (0.0-12.0); Neutrophils # (auto) 7.2 10 ^3/uL (1.6-8.6); Neutrophils % (auto) 73.4 % (37.0-80.0); Red Blood Cells 3.93 10^6/uL (4.5-5.90); White Blood Cell 9.9 10^3/uL (4.4-10.8)
[2024-03-30 07:03] LABS: Chloride 102 mmol/L (98-107); Potassium 4.1 mmol/L (3.5-5.1); Sodium 131 mmol/L (136-145)
[2024-03-30 07:04] LABS: Anion Gap 8 (5-15); Calcium 9.2 mg/dL (8.5-10.1); Carbon Dioxide 21 mmol/L (20-30)
[2024-03-30 07:09] LABS: BUN/Creatinine Ratio 17.9 (10.0-20.0); Blood Urea Nitrogen 25 mg/dL (9-23); Glucose 160 mg/dL (74-106)
[2024-03-30 07:22] LABS: Red Cell Distribution Width 23.3 % (11.8-14.3)
[2024-03-30 07:48] LABS: Anisocytosis Slight; Hypochromia Slight; Platelet Estimate Decreased
[2024-03-30] MEDS: VANCOMYCIN 1GM/200ML 200 ML IV SCH (22:11)
[2024-03-30] MEDS: COLCHICINE 0.6 MG CAP PO SCH (22:11)
[2024-03-30] MEDS: dilTIAZem 25 MG/5 ML VIAL IV ONE (22:19)
[2024-03-31] VITALS (7 sets, daily range): BP systolic 116–161; BP diastolic 63–80; PULSE 100–117; RESP 16–20; TEMP 97.9–98.9; O2SAT 93–96
[2024-03-31] MEDS: LACTULOSE 20Gm/30ML SOLN PO ONE (11:46)
[2024-03-31 14:14] LABS: Erythrocyte Sedimentation Rate 107 mm/hr (0-20)
[2024-04-01] VITALS (8 sets, daily range): BP systolic 109–132; BP diastolic 63–71; PULSE 94–105; RESP 16–20; TEMP 97.6–99.2; O2SAT 93–95
[2024-04-01 07:21] LABS: Chloride 101 mmol/L (98-107); Potassium 4.1 mmol/L (3.5-5.1); Sodium 131 mmol/L (136-145)
[2024-04-01 07:22] LABS: Anion Gap 6 (5-15); Carbon Dioxide 24 mmol/L (20-30)
[2024-04-01 07:23] LABS: Calcium 9.4 mg/dL (8.5-10.1)
[2024-04-01 07:27] LABS: BUN/Creatinine Ratio 21.6 (10.0-20.0); Blood Urea Nitrogen 24 mg/dL (9-23); Glucose 155 mg/dL (74-106)
[2024-04-01 07:32] LABS: Basophils # (auto) 0.1 10 ^3/uL (0-0.2); Hematocrit 28.5 % (41.0-53.0); Monocytes # (auto) 0.7 10 ^3/uL (0-1.3); White Blood Cell 7.2 10^3/uL (4.4-10.8)
[2024-04-01 07:34] LABS: Eosinophils # (auto) 0.4 10 ^3/uL (0-0.8); Eosinophils % (auto) 6.1 % (0.0-7.0); Hemoglobin 8.9 g/dL (13.5-17.5); Lymphocytes # (auto) 1.1 10 ^3/uL (0.4-5.4); Lymphocytes % (auto) 14.6 % (10.0-50.0); Mean Corpuscular Hemoglobin 24.3 pg (28.0-32.0); Mean Corpuscular Hgb Conc. 31.4 g/dL (32.0-36.0); Mean Corpuscular Volume 77.2 fL (80.0-100.0); Monocytes % (auto) 9.6 % (0.0-12.0); Neutrophils % (auto) 68.7 % (37.0-80.0); Nucleated Red Blood Cells % 0.1 %; Red Blood Cells 3.69 10^6/uL (4.5-5.90); Red Cell Distribution Width 23.3 % (11.8-14.3)
[2024-04-01] MEDS: GADOTERATE MEG 10 MMOL/20ml INJ (0.5MMOL/ml) IV ONE (07:34)
[2024-04-01] MEDS: predniSONE 5 MG TAB PO ONE (12:17)
[2024-04-01] MEDS: LINEZOLID 600MG/300ML 300 ML IV SCH (12:20)
[2024-04-01] MEDS ORDERED: DOXY-111 PO (12:24)
[2024-04-01] MEDS ORDERED: BACDST PO (12:24)
[2024-04-01] MEDS ORDERED: METH4PAK PO (12:24)
[2024-04-02] VITALS (8 sets, daily range): BP systolic 113–129; BP diastolic 50–72; PULSE 71–114; RESP 16–20; TEMP 97.3–98.2; O2SAT 93–98
[2024-04-02 06:50] LABS: Basophils # (auto) 0 10 ^3/uL (0-0.2); Basophils % (auto) 0.7 % (0.0-2.0); Eosinophils # (auto) 0.3 10 ^3/uL (0-0.8); Eosinophils % (auto) 4.5 % (0.0-7.0); Hematocrit 27.9 % (41.0-53.0); Hemoglobin 8.8 g/dL (13.5-17.5); Lymphocytes # (auto) 1.2 10 ^3/uL (0.4-5.4); Lymphocytes % (auto) 17.1 % (10.0-50.0); Mean Corpuscular Hgb Conc. 31.5 g/dL (32.0-36.0); Mean Corpuscular Volume 76.4 fL (80.0-100.0); Monocytes # (auto) 0.6 10 ^3/uL (0-1.3); Monocytes % (auto) 9.5 % (0.0-12.0); Neutrophils # (auto) 4.7 10 ^3/uL (1.6-8.6); Neutrophils % (auto) 68.2 % (37.0-80.0); Red Blood Cells 3.65 10^6/uL (4.5-5.90); White Blood Cell 6.9 10^3/uL (4.4-10.8)
[2024-04-02 06:52] LABS: Red Cell Distribution Width 22.8 % (11.8-14.3)
[2024-04-02 07:02] LABS: Calcium 9.5 mg/dL (8.7-10.4); Chloride 102 mmol/L (98-107); Potassium 3.8 mmol/L (3.5-5.1); Sodium 133 mmol/L (136-145)
[2024-04-02 07:03] LABS: Anion Gap 6 (5-15); Carbon Dioxide 25 mmol/L (20-30)
[2024-04-02 07:08] LABS: BUN/Creatinine Ratio 22.9 (10.0-20.0); Blood Urea Nitrogen 25 mg/dL (9-23); Glucose 137 mg/dL (74-106)
[2024-04-02 07:55] LABS: Anisocytosis Slight; Hypochromia Slight
[2024-04-02 07:57] LABS: Large Platelets FEW; Platelet Estimate Decrea
[2024-04-02] MEDS: predniSONE 5 MG TAB PO ONE (12:14)
[2024-04-03 01:23] VITALS: BP 125/61; PULSE 84; RESP 18; TEMP 98.4; O2SAT 97
[2024-04-03 05:27] VITALS: BP 139/71; PULSE 80; RESP 18; TEMP 97.8; O2SAT 96
[2024-04-03 08:00] VITALS: PULSE 91
[2024-04-03 08:59] VITALS: BP 125/65; PULSE 88; RESP 21; TEMP 98.4; O2SAT 96
[2024-04-03 13:16] VITALS: BP 119/63; PULSE 86; RESP 20; TEMP 98.2; O2SAT 93
== END 2024-04-03 16:00 | disposition home or self-care (01) | DRG 871 ==
LOC: ER 13:42 → TELE 20:16 → TELE-EAST 23:35
PROVIDERS: ADMIT Internal Medicine; ATTEND Internal Medicine
DX: A41.9 Sepsis, unspecified organism (principal); N17.0 Acute kidney failure with tubular necrosis; E87.20 Acidosis, unspecified; L03.113 Cellulitis of right upper limb; N39.0 Urinary tract infection, site not specified; N18.30 Chronic kidney disease, stage 3 unspecified; E11.22 Type 2 diabetes mellitus with diabetic chronic kidney disease; M10.9 Gout, unspecified; I12.9 Hypertensive chronic kidney disease with stage 1 through stage 4 chronic kidney disease, or unspecified chronic kidney disease; N40.0 Benign prostatic hyperplasia without lower urinary tract symptoms; M13.841 Other specified arthritis, right hand; Z85.51 Personal history of malignant neoplasm of bladder; Z79.899 Other long term (current) drug therapy; Z79.4 Long term (current) use of insulin
CPT/HCPCS: 36415; 71045; 73120; 80048; 80053; 80202; 81001; 82553; 82962; 83605; 84484; 84550; 85025; 85610; 85652; 85730; 86431; 87040; 87081; 87086; 93005; 96361; 96365; 96366; 96367; 97110; 97116; 97163; 97530; C9113; G0378; J1815; J2543

== ENCOUNTER 2024-06-14 16:28 | Inpatient (IN) | payer OTHER ==
[~2024-06-14] VITALS: Ht 175.3 cm; Wt 84.6 kg
[~2024-06-14 16:28] MED LIST changes: +BACDST PO; +DOXY-111 PO; +METH4PAK PO
[2024-06-14] MEDS: IBUPROFEN 800 MG TAB PO ONE (17:13)
[2024-06-14] MEDS: ACETAMINOPHEN 325 MG TAB PO ONE (17:14)
[2024-06-14] MEDS: SODIUM CHLORIDE 0.9% 1,000 ML IV ONE ×2 (17:18→18:33)
[2024-06-14 17:35] VITALS: PULSE 121; RESP 28; O2SAT 93
[2024-06-14 17:46] LABS: Basophils # (auto) 0 10 ^3/uL (0-0.2); Basophils % (auto) 0.4 % (0.0-2.0); Eosinophils # (auto) 0 10 ^3/uL (0-0.8); Eosinophils % (auto) 0.1 % (0.0-7.0); Hemoglobin 10.7 g/dL (13.5-17.5); Lymphocytes # (auto) 0.7 10 ^3/uL (0.4-5.4); Monocytes # (auto) 1.3 10 ^3/uL (0-1.3)
[2024-06-14 17:48] LABS: Hematocrit 33.1 % (41.0-53.0); Mean Corpuscular Hemoglobin 26.6 pg (28.0-32.0); Mean Corpuscular Hgb Conc. 32.2 g/dL (32.0-36.0); Mean Corpuscular Volume 82.6 fL (80.0-100.0); Monocytes % (auto) 10.8 % (0.0-12.0); Neutrophils # (auto) 10.3 10 ^3/uL (1.6-8.6); Neutrophils % (auto) 82.7 % (37.0-80.0); Red Blood Cells 4.01 10^6/uL (4.5-5.90); White Blood Cell 12.4 10^3/uL (4.4-10.8)
[2024-06-14 17:54] LABS: Alanine Aminotransferase 10 U/L (7-40); Albumin 3.8 g/dL (3.2-4.8); Alkaline Phosphatase 94 U/L (46-116); Anion Gap 11 (5-15); Aspartate Aminotransferase 15 U/L (13-40); BUN/Creatinine Ratio 16.2 (10.0-20.0); Blood Urea Nitrogen 25 mg/dL (9-23); Calcium 9.2 mg/dL (8.7-10.4); Carbon Dioxide 20 mmol/L (20-30); Chloride 100 mmol/L (98-107); Glucose 251 mg/dL (74-106); Magnesium 1.5 mg/dL (1.6-2.6); Potassium 4.2 mmol/L (3.5-5.1); Sodium 131 mmol/L (136-145)
[2024-06-14 17:55] LABS: Bilirubin, Total 1.1 mg/dL (0.2-1.0); Total Protein 7.2 g/dL (5.7-8.2)
[2024-06-14 18:08] LABS: Red Cell Distribution Width 22.3 % (11.8-14.3)
[2024-06-14 18:12] LABS: Lactic Acid w/Reflex 3.8 mmol/L (0.4-2.0)
[2024-06-14 18:19] LABS: Urine Amorphous Crystal FEW /hpf (None Seen); Urine Bacteria MOD /hpf (None Seen); Urine Blood 2+ /uL (Negative); Urine Clarity Ex.Turbid (Clear); Urine Color Colorless (Yellow); Urine Mucus FEW (None Seen); Urine Protein, UAD 1+ (Negative); Urine Specific Gravity 1.015 (1.001-1.035); Urine Urobilinogen Normal (Negative); Urine WBC 1141 /hpf (0 - 3); Urine WBC Clumps PRESENT /hpf (None Seen)
[2024-06-14] MEDS ORDERED: CEFEPIME 2GM/50ML NS 50 ML IV ONE (18:30)
[2024-06-14 18:33] LABS: Anisocytosis Slight; Large Platelets FEW; Platelet Estimate Decreased
[2024-06-14] MEDS: VANCOMYCIN 1GM/200ML 200 ML IV ONE (18:34)
[2024-06-14] MEDS: ONDANSETRON HCL 4 MG/2 ML VIAL IV ONE (18:34)
[2024-06-14] MEDS: ACETAMINOPHEN IV 1000 MG/100ML (10MG/ML) IV STA (18:35)
[2024-06-14 18:44] LABS: COVID19 ANTIGEN SOFIA FIA NEGATIVE (NEGATIVE); Rapid Influenza A Negative (Negative); Rapid Influenza B Negative (Negative)
[2024-06-14] MEDS: CEFEPIME 2GM/50ML NS 50 ML IV ONE (19:01)
[2024-06-14] MEDS ORDERED: HYDROcodone-ACET 5/325MG TAB PO PRN (19:30)
[2024-06-14] MEDS ORDERED: ONDANSETRON HCL 4 MG/2 ML VIAL IV PRN (19:30)
[2024-06-14] MEDS ORDERED: DOCUSATE SOD 100 MG CAP PO PRN (19:30)
[2024-06-14 20:20] VITALS: PULSE 82; RESP 26; O2SAT 93
[2024-06-14] MEDS: LACTATED RINGER'S 1,000 ML IV ONE (21:02)
[2024-06-14] MEDS: PANTOPRAZOLE 40 MG/10 ML VIAL INJ IV SCH (21:02)
[2024-06-14] MEDS: MAGNESIUM SULFATE 1GM/100ML 100 ML IV ONE (21:02)
[2024-06-14] MEDS: cefTRIAXone 2GM/50ML D5W 50 ML IV SCH (21:19)
[2024-06-14] MEDS: SODIUM CHLOR 0.9% PF (SALINE LOCK) 10ML VIAL/SYR IV SCH (22:08)
[2024-06-14 22:30] VITALS: BP 101/59; PULSE 79; RESP 18; TEMP 98.1; O2SAT 97
[2024-06-15] VITALS (7 sets, daily range): BP systolic 100–126; BP diastolic 44–62; PULSE 76–117; RESP 16–23; TEMP 96.1–100.9; O2SAT 92–98
[2024-06-15] MEDS: ENOXAPARIN SOD 40 MG/0.4 ML SYRINGE SC SCH (08:51)
[2024-06-15 11:15] LABS: Basophils # (auto) 0.1 10 ^3/uL (0-0.2); Basophils % (auto) 0.4 % (0.0-2.0); Eosinophils # (auto) 0 10 ^3/uL (0-0.8); Lymphocytes # (auto) 0.5 10 ^3/uL (0.4-5.4); Mean Corpuscular Volume 81.3 fL (80.0-100.0)
[2024-06-15 11:16] LABS: Eosinophils % (auto) 0.3 % (0.0-7.0); Hemoglobin 10.3 g/dL (13.5-17.5); Lymphocytes % (auto) 3.3 % (10.0-50.0); Mean Corpuscular Hgb Conc. 33.2 g/dL (32.0-36.0); Monocytes % (auto) 6.9 % (0.0-12.0); Neutrophils # (auto) 13.2 10 ^3/uL (1.6-8.6); Neutrophils % (auto) 89.1 % (37.0-80.0); Red Blood Cells 3.82 10^6/uL (4.5-5.90); White Blood Cell 14.8 10^3/uL (4.4-10.8)
[2024-06-15 11:28] LABS: Anion Gap 9 (5-15); Carbon Dioxide 20 mmol/L (20-30); Chloride 102 mmol/L (98-107); Sodium 131 mmol/L (136-145)
[2024-06-15 11:29] LABS: Calcium 9.1 mg/dL (8.7-10.4); Red Cell Distribution Width 21.3 % (11.8-14.3)
[2024-06-15 11:34] LABS: BUN/Creatinine Ratio 16.1 (10.0-20.0); Blood Urea Nitrogen 24 mg/dL (9-23); Glucose 180 mg/dL (74-106); Triglycerides 77 mg/dL (< 150)
[2024-06-15 11:35] LABS: LDL Cholesterol 78 mg/dL (< 100); Magnesium 1.6 mg/dL (1.6-2.6)
[2024-06-15 11:36] LABS: Cholesterol 128 mg/dL (< 200); HDL Cholesterol 35 mg/dL (40-59); Phosphorus 2.6 mg/dL (2.4-5.1)
[2024-06-15 11:52] LABS: INR 1.17 (0.9-1.15); Partial Thromboplastin Time 34.6 SEC (24.5-34.5); Prothrombin Time 12.3 sec (9.3-11.8)
[2024-06-15] MEDS ORDERED: LOSA-533 PO (14:39)
[2024-06-15] MEDS ORDERED: DUTA0.5C11 PO (14:39)
[2024-06-15] MEDS ORDERED: TADA5TAB11 PO (14:39)
[2024-06-15] MEDS: SODIUM CHLORIDE 0.9% 1,000 ML IV SCH (15:42)
[2024-06-15] MEDS: ACETAMINOPHEN 325 MG TAB PO PRN (15:47)
[2024-06-16 01:00] VITALS: BP 104/65; PULSE 96; RESP 18; TEMP 101.6; O2SAT 94
[2024-06-16 05:00] VITALS: BP 108/63; PULSE 111; RESP 19; TEMP 99.5; O2SAT 94
[2024-06-16 09:00] VITALS: BP 96/54; PULSE 107; RESP 16; TEMP 99.5; O2SAT 93
[2024-06-16] MEDS ORDERED: FLUC200T PO (10:54)
[2024-06-16] MEDS ORDERED: CIPR-173 PO (10:54)
[2024-06-16] MEDS: FLUCONAZOLE 100 MG TAB PO ONE (13:12)
[2024-06-16 13:45] VITALS: BP 96/54; PULSE 107; RESP 16; TEMP 99.5; O2SAT 93
[2024-06-16 14:00] VITALS: BP 115/66; PULSE 104; RESP 17; TEMP 98.9; O2SAT 94
[2024-06-17] MEDS ORDERED: FLUCONAZOLE 100 MG TAB PO SCH (10:00)
== END 2024-06-16 15:46 | disposition home or self-care (01) | DRG 871 ==
LOC: ER 16:28 → OVERFLOW 19:34 → WEST WING 22:30
PROVIDERS: ADMIT Internal Medicine; ATTEND Family Medicine
DX: A41.9 Sepsis, unspecified organism (principal); G93.41 Metabolic encephalopathy; N17.9 Acute kidney failure, unspecified; E87.21 Acute metabolic acidosis; N13.6 Pyonephrosis; E86.0 Dehydration; E83.42 Hypomagnesemia; Z20.822 Contact with and (suspected) exposure to COVID-19; N40.1 Benign prostatic hyperplasia with lower urinary tract symptoms; N28.1 Cyst of kidney, acquired; D64.9 Anemia, unspecified; R65.20 Severe sepsis without septic shock; R31.0 Gross hematuria; I12.9 Hypertensive chronic kidney disease with stage 1 through stage 4 chronic kidney disease, or unspecified chronic kidney disease; N18.32 Chronic kidney disease, stage 3b; E11.22 Type 2 diabetes mellitus with diabetic chronic kidney disease; Z85.46 Personal history of malignant neoplasm of prostate; Z90.79 Acquired absence of other genital organ(s); Z79.84 Long term (current) use of oral hypoglycemic drugs; Z87.891 Personal history of nicotine dependence
CPT/HCPCS: 36415; 71045; 74176; 76775; 80048; 80053; 80061; 81001; 82140; 82306; 82607; 83036; 83605; 83735; 83880; 83930; 84100; 84443; 84484; 85025; 85610; 85730; 86803; 87040; 87086; 87426; 87804; 93005; 96365; 96366; 96367; 96375; G0378; J0131; J0692; J2405; J2470

== ENCOUNTER 2024-06-28 19:38 | Emergency (ER) | payer OTHER ==
[~2024-06-28] VITALS: Ht 175.3 cm; Wt 79.5 kg
[~2024-06-28 19:38] MED LIST changes: -BACDST PO; +CIPR-173 PO; -DOXY-111 PO; +DUTA0.5C11 PO; +FLUC200T PO; +LOSA-533 PO; -METH4PAK PO; +TADA5TAB11 PO
[2024-06-28 21:28] LABS: Basophils # (auto) 0.1 10 ^3/uL (0-0.2); Eosinophils # (auto) 0.2 10 ^3/uL (0-0.8); Hemoglobin 10.3 g/dL (13.5-17.5); Lymphocytes # (auto) 1.2 10 ^3/uL (0.4-5.4); Mean Corpuscular Hemoglobin 26.6 pg (28.0-32.0); Monocytes # (auto) 0.9 10 ^3/uL (0-1.3); Neutrophils # (auto) 8.4 10 ^3/uL (1.6-8.6)
[2024-06-28 21:30] LABS: Basophils % (auto) 0.9 % (0.0-2.0); Eosinophils % (auto) 1.4 % (0.0-7.0); Hematocrit 31.4 % (41.0-53.0); Lymphocytes % (auto) 11.3 % (10.0-50.0); Mean Corpuscular Hgb Conc. 32.6 g/dL (32.0-36.0); Mean Corpuscular Volume 81.4 fL (80.0-100.0); Monocytes % (auto) 8.3 % (0.0-12.0); Neutrophils % (auto) 78.1 % (37.0-80.0); Nucleated Red Blood Cells % 0.1 %; Platelet Count (auto) 154 10^3/uL (140-450); Red Blood Cells 3.86 10^6/uL (4.5-5.90); White Blood Cell 10.8 10^3/uL (4.4-10.8)
[2024-06-28 21:33] LABS: Red Cell Distribution Width 20.8 % (11.8-14.3)
[2024-06-28 21:41] LABS: Anion Gap 9 (5-15); Carbon Dioxide 20 mmol/L (20-30); Chloride 104 mmol/L (98-107); Potassium 4.2 mmol/L (3.5-5.1); Sodium 133 mmol/L (136-145)
[2024-06-28 21:43] LABS: Calcium 9.5 mg/dL (8.7-10.4)
[2024-06-28 21:47] LABS: Blood Urea Nitrogen 25 mg/dL (9-23); Glucose 255 mg/dL (74-106)
[2024-06-29 01:32] LABS: Urine Bacteria MANY /hpf (None Seen); Urine Blood 3+ /uL (Negative); Urine Clarity Ex.Turbid (Clear); Urine Color Red (Yellow); Urine Mucus FEW (None Seen); Urine Protein, UAD 2+ (Negative); Urine Specific Gravity 1.014 (1.001-1.035); Urine Urobilinogen Normal (Negative); Urine WBC 642 /hpf (0 - 3); Urine WBC Clumps PRESENT /hpf (None Seen)
[2024-06-29 02:11] VITALS: BP 135/89; TEMP 97.8
[2024-06-29 02:12] VITALS: PULSE 108; RESP 20; O2SAT 95
== END 2024-06-29 02:19 | disposition home or self-care (01) ==
LOC: ER 19:38
DX: R31.0 Gross hematuria (principal); I10 Essential (primary) hypertension; E11.9 Type 2 diabetes mellitus without complications; Z98.890 Other specified postprocedural states; Z79.899 Other long term (current) drug therapy
CPT/HCPCS: 36415; 51702; 80048; 81001; 85025

== ENCOUNTER 2024-12-14 18:06 | Inpatient (IN) | payer OTHER ==
[~2024-12-14] VITALS: Ht 167.6 cm; Wt 81.2 kg
--- NOTE | 2024-12-14 18:31 | ED.PDOC ---
General HPI Comments HPI: Poor Historian. 89-year-old male brought in by his son for evaluation of generalized weakness and disorientation in the last two days. 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 Patient has history of bladder cancer follows at an [facility] facility. Patient gets his Stiles catheter replaced every month. He is scheduled for replacement tomorrow. They noted today that there is some occasional blood at the meatus of the urethra but the urine itself is normal in color. Family brought the patient here for further evaluation. On arrival patient was tachycardic temperature 98.1 blood pressure 88/43 respiratory rate 16 heart rate 130. Past Medical History: Diabetes, bladder cancer,UTI, sepsis, cellulitis, obstructive uropathy, symptomatic anemia, hydronephrosis, bladder neoplasm, ureteral stent, diabetes, indwelling Stiles catheter Past Surgical History: REVIEW OF SYSTEMS: CONSTITUTIONAL: Denies acute: fever, diaphoresis, chills, HEAD: Denies acute: headache, photophobia Eyes: Denies acute: Double vision, vision loss, eye pain, eye discharge. EARS: Denies acute: tinnitus, hearing loss, ear discharge, ear pain, THROAT: Denies acute: sore throat, swelling, difficulty swallowing , pain with swallowing, change in voice. NECK: Denies acute: neck pain, neck swelling, stiff neck. HEART: Denies acute : chest pain, palpitations, LUNGS: Denies acute: SOB, wheezing, cough, hemoptysis ABDOMEN: Denies acute: abdominal pain, Nausea, Vomiting, diarrhea, melena , hematemesis, hematochezia SKIN: Denies acute: rash, redness, lesions, itchiness. EXTREMITIES: Denies acute: calf pain, numbness, tingling, weakness, denies pain in extremity. Denies acute: Low back pain. Neuro: Denies acute: focal neurological deficit, motor or sensory focal neurological deficit, tremors, seizure like activity, dizziness, loss of bowel or bladder function, cauda equina like symptoms. : Denies acute: dysuria, flank pain, increase in urinary frequency. PSYCH: Denies acute: hallucination, suicidal ideation, homicidal ideation. PHYSICAL EXAM: General: no acute distress, awake and alert. Head: normocephalic, atraumatic. Neck: supple, trachea is midline, no swelling. Throat: Normal phonation. Eyes:, no erythema, no purulent discharge, no proptosis, no icterus. Heart: regular tachycardia, no significant murmur appreciated. Lungs: no apparent respiratory distress, Able to speak in full sentences. No wheezing, no rhonchi, no crackles. No stridors Clear to auscultation bilaterally. Abdomen: non tender to palpation, non distended, soft, no guarding, no rebound, + bowel sounds. Neuro: Awake, Alert, oriented to name, self, situation, follows commands GCS=15. Speech is normal. Skin: no petechia, no purpura, no cyanosis, non-pale, not jaundice. Lower extremities: --trace bilateral - Pitting edema no deformity, no focal swelling, no calf TTP. Makes eye contact. moves all four extremities. Face: no apparent facial droop. ED COURSE: Time Seen by MD: 18:16 Primary Care Provider: PAO Reviewed notes: Nurses Notes, Allergies Allergies: Coded Allergies: NO KNOWN ALLERGIES (Unverified , 09/06/23) Home Meds Active Scripts Fluconazole (Diflucan) 200 Mg Tab, 1 TAB PO DAILY, #20 TAB Prov:BALDOMERO CHAVIRA MD 06/16/24 Ciprofloxacin Hcl (Cipro) 500 Mg Tab, 1 TAB PO BID, #20 TAB Prov:BALDOMERO CHAVIRA MD 06/16/24 Reported Medications Dutasteride (Avodart) 0.5 Mg Cap, 0.5 MG PO DAILY, CAP 06/15/24 Losartan Potassium (Losartan Potassium) 25 Mg Tab, 25 MG PO DAILY, TAB 06/15/24 Tadalafil (Cialis) 5 Mg Tab, 5 MG PO DAILY, TAB 06/15/24 Metformin Hydrochloride (Metformin Hcl) 1,000 Mg Tab, 1 TAB PO BID, #60 TAB 5 Refills 03/07/24 Information Source: Patient, Relative Was a procedure done? Was a procedure done?: No Differential Diagnosis Kidney stone (Female): N/A Other Differential Diagnosis Includes but not limited to thyroid disease, encephalopathy, electrolyte abnormality, sepsis, infection, intracranial pathology, drug adverse effects, arrhythmia, kidney insufficiency, ACS, CVA, malignancy, anemia Departure 1 Departure Time of Disposition: 19:34 Impression: Primary Impression: Sepsis Additional Impressions: Altered mental status Hypotension Tachycardia Leukocytosis UTI (urinary tract infection) Complicated UTI (urinary tract infection) Hypoalbuminemia Disposition: ADMITTED INPATIENT Admit to: Megan Condition: Guarded Discharged With: Self, Relative Critical Care Note Critical Care Time?: Yes (1 hr-critical care time only) Heart Score Heart Score: Heart Score Response (Comments) Value History N/A 0 EKG N/A 0 Age N/A 0 Risk Factors N/A 0 Troponin N/A 0 Total 0 X-Ray, Labs, Meds, VS Vital Signs Date Time Temp Pulse Resp B/P (MAP) Pulse Ox O2 Delivery O2 Flow Rate FiO2 12/14/24 22:00 117 25 103/56 (72) 96 12/14/24 21:30 103/53 12/14/24 21:00 115 22 103/53 (70) 96 12/14/24 20:00 119 12/14/24 19:23 124 21 96 Room Air* 0 21 12/14/24 19:23 97.4 124 21 103/49 (67) 96 97.4 12/14/24 18:44 97.4 131 23 109/50 (69) 96 97.4 12/14/24 18:36 98.1 132 16 88/43 (58) 96 Lab Test 12/14/24 22:05 12/14/24 21:58 12/14/24 21:23 12/14/24 20:40 Range/Units Troponin I High Sensitivity 10 </=54 ng/L POC Glucose 131 H 70-106 mg/dl Lactic Acid Level 4.2 *H 0.4-2.0 mmol/L Urine Color Colorless Yellow Urine Clarity Ex.turbid Clear Urine pH 7.0 5.0-9.0 Urine Specific [place] 1.012 1.001-1.035 Urine Protein 1+ H Negative Urine Ketones Negative Negative Urine Blood 3+ H Negative /uL Urine Nitrite Negative Negative Urine Bilirubin Negative Negative Urine Urobilinogen Normal Negative mg/dL Urine Leukocyte Esterase 3+ Negative /uL Urine RBC 55 0 - 3 /hpf Urine WBC Clumps Present None Seen /hpf Urine Microscopic WBC 119 H 0-3 /HPF Urine Squamous Epithelial Cells None seen <5 /hpf Urine Bacteria Few H None Seen /hpf Urine Glucose Normal Normal mg/dL Influenza Type A Antigen Negative Negative Influenza Type B Antigen Negative Negative SARS-CoV-2 Antigen (Rapid) Negative NEGATIVE Test 12/14/24 20:07 12/14/24 20:04 12/14/24 19:10 Range/Units POC Glucose 163 H 70-106 mg/dl Troponin I High Sensitivity 12 13 </=54 ng/L White Blood Count 19.2 H 4.4-10.8 10^3/uL Red Blood Count 3.66 L 4.5-5.90 10^6/uL Hemoglobin 9.0 L 13.5-17.5 g/dL Hematocrit 28.8 L 41.0-53.0 % Mean Corpuscular Volume 78.6 L 80.0-100.0 fL Mean Corpuscular Hemoglobin 24.6 L 28.0-32.0 pg Mean Corpuscular Hemoglobin Concent 31.3 L 32.0-36.0 g/dL Red Cell Distribution Width 16.9 H 11.8-14.3 % Platelet Count 174 140-450 10^3/uL Mean Platelet Volume 11.9 H 6.9-10.8 fL Neutrophils (%) (Auto) 87.0 H 37.0-80.0 % Lymphocytes (%) (Auto) 6.2 L 10.0-50.0 % Monocytes (%) (Auto) 5.4 0.0-12.0 % Eosinophils (%) (Auto) 1.0 0.0-7.0 % Basophils (%) (Auto) 0.4 0.0-2.0 % Neutrophils # (Auto) 16.7 H 1.6-8.6 10 ^3/uL Lymphocytes # (Auto) 1.2 0.4-5.4 10 ^3/uL Monocytes # (Auto) 1.0 0-1.3 10 ^3/uL Eosinophils # (Auto) 0.2 0-0.8 10 ^3/uL Basophils # (Auto) 0.1 0-0.2 10 ^3/uL Nucleated Red Blood Cells 0.0 % Sodium Level 130 L 136-145 mmol/L Potassium Level 4.1 3.5-5.1 mmol/L Chloride Level 98 98-107 mmol/L Carbon Dioxide Level 20 20-31 mmol/L Anion Gap 12 5-15 Blood Urea Nitrogen 50 H 9-23 mg/dL Creatinine 1.50 H 0.700-1.30 mg/dL Glomerular Filtration Rate Calc 45 >90 mL/min BUN/Creatinine Ratio 33.3 H 10.0-20.0 Serum Glucose 192 H 74-106 mg/dL Lactic Acid Level 4.8 *H 0.4-2.0 mmol/L Calcium Level 9.8 8.7-10.4 mg/dL Total Bilirubin 0.3 0.2-1.0 mg/dL Aspartate Amino Transferase (AST) 36 13-40 U/L Alanine Aminotransferase (ALT) 13 7-40 U/L Alkaline Phosphatase 111 46-116 U/L B-Type Natriuretic Peptide 34.69 0-100 pg/mL Total Protein 6.2 5.7-8.2 g/dL Albumin 2.8 L 3.2-4.8 g/dL Current Medications Medications (Trade) Dose Ordered Sig/Ney Route Start Time Stop Time Status Last Admin Sodium Chloride 1,000 ml @ 1,000 mls/hr Q1H ONCE IV 12/14/24 18:45 12/14/24 19:44 DC 12/14/24 19:17 Ceftriaxone Sodium 50 ml @ 100 mls/hr ONCE ONCE IV 12/14/24 18:45 12/14/24 19:14 DC 12/14/24 19:17 Sodium Chloride 1,000 ml @ 1,000 mls/hr Q1H ONCE IV 12/14/24 20:30 12/14/24 21:29 DC 12/14/24 21:30 Doxycycline Hyclate 100 ml @ 50 mls/hr Q12H IV 12/14/24 21:00 12/14/24 21:30 Furosemide (Lasix Injection) 20 mg ONCE ONCE IV 12/14/24 21:00 12/14/24 21:12 DC 12/14/24 21:30 Diagnostic Test (Pha) (Accu-Chek Comfort Curve T) 1 strip ACHS 12/14/24 22:00 12/14/24 21:59 Insulin Human Regular (InsuLIN R) HS SC 12/14/24 22:00 12/14/24 22:08 Sodium Chloride (Saline Lock Ns) 10 ml Q8HR IV 12/14/24 22:00 12/14/24 21:46 Attestation Patient was admitted to telemetry bed in a guarded position. Patient presented with the above HPI.--altered mental status----workup was initiated. patient was found with the above mentioned diagnosis. the following medications were ordered: please refer to order lists of meds and tests obtained by myself Dr. Pineda. Patient ED course and VS have been stabilized. Patient has been reassessed in the ED and remained in a stable condition. Pertinent incidental findings were discussed with the patient and/or family. Patient/family voices understanding and is agreeable with plan. Patient has been observed in the ED adequate length of time to insure improvement/stability. Escalation of care considered: Consideration of escalation to observation or admission Patient was ADMITTED to the medicine team for further evaluation and treatment of their presentation. Stiles catheter was replaced. There was foul odor of the old catheter. Patient was wearing a diaper. Antibiotics initiated. Sepsis protocol initiated. Patient was given fluid boluses. All the reports of any imaging studies that were ordered by myself were reviewed by myself. I personally scribed for ANDREW PINEDA DO ([email or web address]) on 12/14/24 at 18:31. Electronically submitted by Agustina Hernandez ([email or web address]). ANDREW PINEDA DO Dec 14, 2024 18:31
--- NOTE | 2024-12-14 18:53 | DVH ---
EXAM: XR Chest, 1 View CLINICAL INDICATION: weak, TECHNIQUE: Frontal view of the chest. COMPARISON: XY CHEST PORTABLE on DOS: 06/14/24, XY CHEST PORTABLE on DOS: 03/27/24, XY CHEST XRAY 1 EW on DOS: 03/07/24, XY CHEST PORTABLE on DOS: 09/06/23 FINDINGS: LUNGS AND PLEURAL SPACES: Pulmonary congestion and edema. Pneumonia cannot be excluded. No pneumot horax. HEART: Unremarkable. No cardiomegaly. MEDIASTINUM: Unremarkable. Normal mediastinal contour. BONES/JOINTS: Unremarkable. No acute fracture. OTHER FINDINGS: . . . .. IMPRESSION: Pulmonary congestion and edema. Pneumonia cannot be excluded.
[2024-12-14] MEDS: SODIUM CHLORIDE 0.9% 1,000 ML IV ONE ×2 (19:17→21:30)
[2024-12-14] MEDS: cefTRIAXone 1GM/50ML D5W 50 ML IV ONE (19:17)
[2024-12-14 19:23] VITALS: PULSE 124; RESP 21; O2SAT 96
[2024-12-14 19:44] LABS: Basophils # (auto) 0.1 10 ^3/uL (0-0.2); Basophils % (auto) 0.4 % (0.0-2.0); Eosinophils # (auto) 0.2 10 ^3/uL (0-0.8); Mean Corpuscular Volume 78.6 fL (80.0-100.0); White Blood Cell 19.2 10^3/uL (4.4-10.8)
[2024-12-14 19:45] LABS: Hematocrit 28.8 % (41.0-53.0); Lymphocytes # (auto) 1.2 10 ^3/uL (0.4-5.4); Lymphocytes % (auto) 6.2 % (10.0-50.0); Mean Corpuscular Hemoglobin 24.6 pg (28.0-32.0); Mean Corpuscular Hgb Conc. 31.3 g/dL (32.0-36.0); Monocytes % (auto) 5.4 % (0.0-12.0); Neutrophils # (auto) 16.7 10 ^3/uL (1.6-8.6); Platelet Count (auto) 174 10^3/uL (140-450); Red Blood Cells 3.66 10^6/uL (4.5-5.90); Red Cell Distribution Width 16.9 % (11.8-14.3)
[2024-12-14 19:57] LABS: Alanine Aminotransferase 13 U/L (7-40); Alkaline Phosphatase 111 U/L (46-116); Anion Gap 12 (5-15); Aspartate Aminotransferase 36 U/L (13-40); BUN/Creatinine Ratio 33.3 (10.0-20.0); Calcium 9.8 mg/dL (8.7-10.4); Carbon Dioxide 20 mmol/L (20-31); Potassium 4.1 mmol/L (3.5-5.1); Total Protein 6.2 g/dL (5.7-8.2)
[2024-12-14 20:13] LABS: Albumin 2.8 g/dL (3.2-4.8); Bilirubin, Total 0.3 mg/dL (0.2-1.0); Blood Urea Nitrogen 50 mg/dL (9-23); Chloride 98 mmol/L (98-107); Glucose 192 mg/dL (74-106); Sodium 130 mmol/L (136-145)
[2024-12-14 20:17] LABS: Lactic Acid w/Reflex 4.8 mmol/L (0.4-2.0)
[2024-12-14] MEDS ORDERED: HYDROcodone-ACET 5/325MG TAB PO PRN (21:00)
[2024-12-14] MEDS ORDERED: DEXTROSE (50%) 50ML SYRG IV PRN (21:00)
[2024-12-14] MEDS ORDERED: ONDANSETRON HCL 4 MG/2 ML VIAL IV PRN (21:00)
[2024-12-14 21:21] LABS: Urine Blood 3+ /uL (Negative); Urine Clarity Ex.Turbid (Clear); Urine Color Colorless (Yellow); Urine Protein, UAD 1+ (Negative); Urine Specific Gravity 1.012 (1.001-1.035); Urine Urobilinogen Normal (Negative)
[2024-12-14 21:27] LABS: Urine Bacteria FEW /hpf (None Seen); Urine WBC 119 /HPF (0-3); Urine WBC Clumps PRESENT /hpf (None Seen)
[2024-12-14] MEDS: DOXYCYCLINE 100MG/100ML 100 ML IV SCH (21:30)
[2024-12-14] MEDS: FUROSEMIDE 20 MG/2 ML VIAL IV ONE (21:30)
[2024-12-14 21:33] LABS: Urine Squamous Epithelial Cell None Seen /hpf (<5)
[2024-12-14 21:43] LABS: COVID19 ANTIGEN SOFIA FIA NEGATIVE (NEGATIVE); Rapid Influenza A Negative (Negative); Rapid Influenza B Negative (Negative)
[2024-12-14] MEDS: SODIUM CHLOR 0.9% PF (SALINE LOCK) 10ML VIAL/SYR IV SCH (21:46)
[2024-12-14] MEDS: ACCU-CHEK COMFORT CURVE STRIP VI SCH (21:59)
[2024-12-14] MEDS: InsuLIN REG 1unit/0.01ml Soln (100units/ml) SC SCH (22:08)
[2024-12-14] MEDS ORDERED: NITROGLYCERIN 0.4 MG SL TAB SL PRN (22:30)
[2024-12-14] MEDS ORDERED: MORPHINE SULFATE INJ 2 MG/ml SYRG IV PRN (22:30)
--- NOTE | 2024-12-14 22:31 | DVHHP2 ---
History of Present Illness Reason for Visit: Generalized weakness History of Present Illness The patient is a 89-year-old male with multiple past medical history including sepsis, diabetes mellitus, and hypertension who presented to [facility] ED for evaluation of generalized weakness. Patient's symptoms progressively get worse with disorientation for the past 2 days, getting worse that prompted this visit. Patient is being followed from outside facility for bladder cancer, gets Stiles catheter replaced every month, next scheduled for replacement tomorrow. Patient was seen and evaluated in the ED, laboratory data shows WBC 19.2, hemoglobin 9.0, hematocrit 28.8, platelets 174, sodium 130, potassium 4.1, BUN 50, creatinine 1.50, GFR 45, glucose 192, lactic acid 4.8, troponin 13, BNP 34.69, albumin 2.8, blood pressure 102/49, heart rate 132 trending down to 115, temperature 97.4 F, O2 saturation 96% on room air. Chest x-ray revealing pulmonary congestion and edema, pneumonia can not be excluded. Urinalysis positive for urinary tract infection. Patient was started on IV an tibiotic regimen doxycycline, please see medication orders section in the computer. On my assessment, son at bedside, no dizziness, no diaphoresis, currently on oxygen, no nausea, no vomiting, no fever, no chills. Patient was admitted for further evaluation and medical management. Past Medical History Diabetes, Bladder cancer,UTI, sepsis, HTN, cellulitis, obstructive uropathy, symptomatic anemia, hydronephrosis, bladder neoplasm Past Surgical History Ureteral stent, indwelling Stiles catheter Family History Reviewed, noncontributory to the management of this case. Past Social History The patient lives at home, denies smoking, alcohol or illicit drugs abuse. Review of Systems Constitutional: Yes: Weakness; No: Fever, Chills, Sweats, Malaise, Other Eyes: No: Pain, Vision change, Conjunctivae inflammation, Eyelid inflammation, Other, Redness ENT: No: Ear pain, Ear discharge, Nose pain, Nose discharge, Nose congestion, Mouth pain, Mouth swelling, Throat pain, Throat swelling, Other Respiratory: No: Cough, Dry, Shortness of breath, SOB with excertion, Wheezing, Hemoptysis, Pleuritic Pain, Sputum, Wheezing, Other Cardiovascular: No: Chest Pain, Palpitations, Orthopnea, Paroxysmal Noc. Dyspnea, Edema, Lt Headedness, Other Gastrointestinal: No: Nausea, Vomiting, Abdominal Pain, Diarrhea, Constipation, Melena, Hematochezia, Other Genitourinary: No Dysuria, No Frequency, No Incontinence, No Hematuria, No Retention; Other (Stiles catheter in place) Musculoskeletal: No: other, neck pain, shoulder pain, arm pain, back pain, hand pain, leg pain, foot pain Skin: No: Rash, Lesions, Jaundice, Bruising, Other Neurological: Weakness; No: Numbness, Incoordination, Change in speech, Confusion, Seizures, Other Allergies: Coded Allergies: NO KNOWN ALLERGIES (Unverified , 09/06/23) Medications Current Medications Medications Dose Ordered Sig/Ney Route Start Time Stop Time Status Last Admin Dose Admin Doxycycline Hyclate 100 ml @ 50 mls/hr Q12H IV 12/14/24 21:00 12/14/24 21:30 50 MLS/HR Ceftriaxone Sodium 50 ml @ 100 mls/hr DAILY@09 IV 12/15/24 09:00 Diagnostic Test (Pha) 1 strip ACHS 12/14/24 22:00 12/14/24 21:59 1 STRIP Insulin Human Regular HS SC 12/14/24 22:00 12/14/24 22:08 2 UNITS Insulin Human Regular AC SC 12/15/24 07:00 Dextrose 50 ml UD PRN IV 12/14/24 21:00 Sodium Chloride 10 ml Q8HR IV 12/14/24 22:00 12/14/24 21:46 10 ML Acetaminophen/ Hydrocodone Bitart 1 tab Q4HP PRN PO 12/14/24 21:00 Ondansetron HCl 4 mg Q4HP PRN IV 12/14/24 21:00 Docusate Sodium 100 mg BIDPRN PRN PO 12/14/24 21:00 Acetaminophen 650 mg Q6HP PRN PO 12/14/24 21:00 Exam Vital Signs Vital Signs Date Time Temp Pulse Resp B/P (MAP) Pulse Ox O2 Delivery O2 Flow Rate FiO2 12/14/24 21:30 103/53 12/14/24 21:00 115 22 96 12/14/24 19:23 Room Air* 0 21 12/14/24 19:23 97.4 97.4 General Appearance: Alert, Cooperative, No acute distress, Other (Oriented x2) HEENT: Atraumatic, PERRLA, EOMI, Mucous membr. moist/pink Respiratory: Normal air movement, Other (Diminished breath sounds) Cardiovascular: Regular rate, Normal S1, Normal S2, No murmurs Abdominal: Normal bowel sounds, Soft, No tenderness, No hepatospenomegaly, No masses Extremities: No clubbing, No cyanosis, No edema, Normal pulses, No tenderness/swelling Skin: No rashes, No breakdown, No significant lesion Neuro: Normal speech, Normal tone, Sensation intact, Cranial nerves 3-12 NL, Reflexes 2+, Other (Generalized weakness) Psych/Mental Status: Mood NL, Other (Altered mental status) Labs/Xrays Labs Test 12/14/24 22:05 12/14/24 21:58 12/14/24 21:23 12/14/24 20:40 Range/Units POC Glucose 131 H 70-106 mg/dl Lactic Acid Level 4.2 *H 0.4-2.0 mmol/L Urine Color Colorless Yellow Urine Clarity Ex.turbid Clear Urine pH 7.0 5.0-9.0 Urine Specific [place] 1.012 1.001-1.035 Urine Protein 1+ H Negative Urine Ketones Negative Negative Urine Blood 3+ H Negative /uL Urine Nitrite Negative Negative Urine Bilirubin Negative Negative Urine Urobilinogen Normal Negative mg/dL Urine Leukocyte Esterase 3+ Negative /uL Urine RBC 55 0 - 3 /hpf Urine WBC Clumps Present None Seen /hpf Urine Microscopic WBC 119 H 0-3 /HPF Urine Squamous Epithelial Cells None seen <5 /hpf Urine Bacteria Few H None Seen /hpf Urine Glucose Normal Normal mg/dL Influenza Type A Antigen Negative Negative Influenza Type B Antigen Negative Negative SARS-CoV-2 Antigen (Rapid) Negative NEGATIVE Test 12/14/24 19:10 Range/Units White Blood Count 19.2 H 4.4-10.8 10^3/uL Red Blood Count 3.66 L 4.5-5.90 10^6/uL Hemoglobin 9.0 L 13.5-17.5 g/dL Hematocrit 28.8 L 41.0-53.0 % Mean Corpuscular Volume 78.6 L 80.0-100.0 fL Mean Corpuscular Hemoglobin 24.6 L 28.0-32.0 pg Mean Corpuscular Hemoglobin Concent 31.3 L 32.0-36.0 g/dL Red Cell Distribution Width 16.9 H 11.8-14.3 % Platelet Count 174 140-450 10^3/uL Mean Platelet Volume 11.9 H 6.9-10.8 fL Neutrophils (%) (Auto) 87.0 H 37.0-80.0 % Lymphocytes (%) (Auto) 6.2 L 10.0-50.0 % Monocytes (%) (Auto) 5.4 0.0-12.0 % Eosinophils (%) (Auto) 1.0 0.0-7.0 % Basophils (%) (Auto) 0.4 0.0-2.0 % Neutrophils # (Auto) 16.7 H 1.6-8.6 10 ^3/uL Lymphocytes # (Auto) 1.2 0.4-5.4 10 ^3/uL Monocytes # (Auto) 1.0 0-1.3 10 ^3/uL Eosinophils # (Auto) 0.2 0-0.8 10 ^3/uL Basophils # (Auto) 0.1 0-0.2 10 ^3/uL Nucleated Red Blood Cells 0.0 % Sodium Level 130 L 136-145 mmol/L Potassium Level 4.1 3.5-5.1 mmol/L Chloride Level 98 98-107 mmol/L Carbon Dioxide Level 20 20-31 mmol/L Anion Gap 12 5-15 Blood Urea Nitrogen 50 H 9-23 mg/dL Creatinine 1.50 H 0.700-1.30 mg/dL Glomerular Filtration Rate Calc 45 >90 mL/min BUN/Creatinine Ratio 33.3 H 10.0-20.0 Serum Glucose 192 H 74-106 mg/dL Calcium Level 9.8 8.7-10.4 mg/dL Total Bilirubin 0.3 0.2-1.0 mg/dL Aspartate Amino Transferase (AST) 36 13-40 U/L Alanine Aminotransferase (ALT) 13 7-40 U/L Alkaline Phosphatase 111 46-116 U/L B-Type Natriuretic Peptide 34.69 0-100 pg/mL Total Protein 6.2 5.7-8.2 g/dL Albumin 2.8 L 3.2-4.8 g/dL PATIENT: FAINA ALWBRENNENCT: [id number] UNIT: [id number] : 1935 LOC: ER ROOM / BED: / AGE / SEX: 89 / M ADM STATUS: REG ER SERVICE 1826 ORDERING PHYSICIAN: ANDREW PINEDA DO PROCEDURE(s): CXRP - CHEST PORTABLE REASON: weak, ORDER NUMBER(s): [id number], ACCESSION NUMBER(s): [id number] EXAM: XR Chest, 1 View CLINICAL INDICATION: weak, TECHNIQUE: Frontal view of the chest. COMPARISON: XY CHEST PORTABLE on DOS: 06/14/24, XY CHEST PORTABLE on DOS: 03/27/24, XY CHEST XRAY 1 VIEW on DOS: 03/07/24, XY CHEST PORTABLE on DOS: 09/06/23 FINDINGS: LUNGS AND PLEURAL SPACES: Pulmonary congestion and edema. Pneumonia cannot be excluded. No pneumothorax. HEART: Unremarkable. No cardiomegaly. MEDIASTINUM: Unremarkable. Normal mediastinal contour. BONES/JOINTS: Unremarkable. No acute fracture. OTHER FINDINGS: MPRESSION: Pulmonary congestion and edema. Pneumonia cannot be excluded. Assessment/Plan Assessment/Plan Sepsis, unspecified organism Hypoalbuminemia Altered mental status Hypotension Generalized weakness Sinus tachycardia Pneumonia, unspecified organism UTI (urinary tract infection) Complicated UTI (urinary tract infection) Plan 1. Admit to telemetry unit 2. Breathing treatment 3. Pain control management 4. IV antibiotic management 5. Management of fluids and electrolytes 6. Consultation for hospitalist 7. Diagnostic test chest x-ray 8. DVT prophylaxis-on SCDs 9. Repeat labs CBC, CMP in a.m. 10. Home medication reviewed and reconciled 11. Continue with current medical management 12. Treatment plan discussed with patient and RN. Patient verbalized understanding. Plan discussed with: Patient, Other (RN) My Orders Orders - VERONIQUE GALLOWAY DNP Procedure Category Date Status Time Consistent DIET 12/15/24 Transmitted Carb(Ccho)Diabetes Breakfast Doxycycline PHA 12/14/24 In Process 100mg/100ml 21:00 Ceftriaxone 1gm/50ml PHA 12/15/24 In Process D5w (Rocephin) 09:00 Glucose Blood PHA 12/14/24 In Process (Accu-Chek Comfort 22:00 Insulin R (Human) PHA 12/14/24 In Process (Insulin R) 22:00 Insulin R (Human) PHA 12/15/24 In Process (Insulin R) 07:00 Dextrose 50% Syringe PHA 12/14/24 In Process 21:00 Allergies NICHOLAS 12/14/24 In Process 20:47 Code Status CODE 12/14/24 Transmitted 20:47 Sodium Chloride Lock PHA 12/14/24 In Process (Saline Lock Ns) 22:00 Oxygen Per Hour RT 12/14/24 Transmitted 20:47 Hydrocodone-Acet PHA 12/14/24 In Process 5/325mg Tab ([place] 21:00 Ondansetron Hcl PHA 12/14/24 In Process (Zofran) 21:00 Docusate Sodium PHA 12/14/24 In Process Capsule (Colace 21:00 Fall Risk Precautions NICHOLAS 12/14/[address] 20:47 Complete Blood Count LAB 12/15/24 Verified 04:00 Comprehensive LAB 12/15/24 Verified Metabolic Panel 04:00 Condition: Serious NICHOLAS 12/14/24 In Process 20:47 Acetaminophen Tablet PHA 12/14/24 In Process (Tylenol Tablet) 21:00 Sequential NICHOLAS 12/14/24 In Process Compression Device * Cardiology Consult CONS 12/14/24 Transmitted 20:47 Type And Screen BBK 12/14/24 In Process 20:54 Admit ADMIT 12/14/24 Transmitted 22:30 Nitroglycerin PHA 12/14/24 Transmitted Sublingual (Ntrostat 22:30 Morphine Sulfate PHA 12/14/24 Transmitted Injection 22:30 Notify Md Of Changes NICHOLAS 12/14/24 Transmitted From Base 22:30 Field Contractor For NICHOLAS 12/14/24 Transmitted 24 Hours 22:30 Emergency Dysrhythmia NICHOLAS 12/14/24 Transmitted Protocol 22:30 Rhythm Strips Once NICHOLAS 12/14/24 Transmitted Every Shift 22:30 Oxygen By Nasal RT 12/14/24 Transmitted Cannula 22:30 Problem List: (1) Sepsis, unspecified organism (2) Pneumonia, unspecified organism (3) Hypotension (4) Altered mental status (5) Tachycardia (6) UTI (urinary tract infection) (7) Hypoalbuminemia (8) Generalized weakness (9) Complicated UTI (urinary tract infection) Date of Service: Dec 14, 2024 Billing Provider: VERONIQUE GALLOWAY DNP Common Visit Codes: 50298-IOFAHLI INP/OBS CARE (HIGH) VERONIQUE GALLOWAY DNP Dec 14, 2024 22:31
[2024-12-15 06:25] LABS: Basophils # (auto) 0.1 10 ^3/uL (0-0.2); Basophils % (auto) 0.3 % (0.0-2.0); Eosinophils # (auto) 0.2 10 ^3/uL (0-0.8); Hematocrit 28.7 % (41.0-53.0); Hemoglobin 9.1 g/dL (13.5-17.5); Lymphocytes # (auto) 1.1 10 ^3/uL (0.4-5.4); Lymphocytes % (auto) 6.4 % (10.0-50.0); Mean Corpuscular Hemoglobin 24.7 pg (28.0-32.0); Mean Corpuscular Hgb Conc. 31.6 g/dL (32.0-36.0); Mean Corpuscular Volume 78.2 fL (80.0-100.0); Monocytes # (auto) 0.9 10 ^3/uL (0-1.3); Monocytes % (auto) 5.3 % (0.0-12.0); Neutrophils # (auto) 15.4 10 ^3/uL (1.6-8.6); Platelet Count (auto) 173 10^3/uL (140-450); Red Blood Cells 3.67 10^6/uL (4.5-5.90); Red Cell Distribution Width 16.9 % (11.8-14.3); White Blood Cell 17.8 10^3/uL (4.4-10.8)
[2024-12-15] MEDS: InsuLIN REG 1unit/0.01ml Soln (100units/ml) SC SCH (06:32)
[2024-12-15 06:43] LABS: Alanine Aminotransferase 10 U/L (7-40); Alkaline Phosphatase 116 U/L (46-116); Anion Gap 9 (5-15); Aspartate Aminotransferase 33 U/L (13-40); BUN/Creatinine Ratio 27.1 (10.0-20.0); Carbon Dioxide 23 mmol/L (20-31); Chloride 102 mmol/L (98-107); Potassium 3.8 mmol/L (3.5-5.1)
[2024-12-15 06:44] LABS: Albumin 3.1 g/dL (3.2-4.8); Bilirubin, Total 0.4 mg/dL (0.2-1.0); Blood Urea Nitrogen 35 mg/dL (9-23); Glucose 138 mg/dL (74-106); Sodium 134 mmol/L (136-145); Total Protein 6.9 g/dL (5.7-8.2)
[2024-12-15 08:00] VITALS: PULSE 131; RESP 25; O2SAT 94
[2024-12-15] MEDS: cefTRIAXone 1GM/50ML D5W 50 ML IV SCH (08:39)
[2024-12-15 09:05] LABS: Magnesium 1.4 mg/dL (1.6-2.6)
--- NOTE | 2024-12-15 10:03 | DVHINCON2 ---
Date Seen: Dec 15, 2024 Referring Physician VIRGINIA Gudino Reason for Consultation Tachycardia History of Present Illness This is a Nauruan-speaking 89-year-old male patient who presents to the emergency room with chief complaint of generalized weakness, altered level of mentation, and foul-smelling urine. At the time of assessment, the patient has episodes of confusion. Spoke with the patient's son/caregiver, Rasta who was better able to provide an accurate history. Per son, he noticed that the patient began to have episodes of confusion and weakness yesterday morning. He also noted a foul smell coming from the patient's Stiles catheter. He decided to bring the patient in for further evaluation. Cardiology has been consulted at this time for tachycardia. Initial twelve lead electrocardiogram reveals sinus tachycardia with artifact. Initial troponin level of 13ng/L with flat trend thereafter. Significant past medical history includes bladder cancer, frequent urinary tract infections, chronic Stiles catheter, and type 2 diabetes mellitus. Patient does not follow a staff radiologist in the outpatient setting. Per the patient's son he is scheduled to follow up with an oncologist at [facility] later this month on 01/04/25. Past Medical History Past medical history reviewed. No other significant than mentioned above. Past Surgical History Prostatectomy Hernia repair Family History: Patient reports no known family medical history. Family History Family history reviewed. Social History Patient has a 10 pack-year history, stopped smoking approximately 30 years ago Patient denies any illicit drug use Patient denies any alcohol use Allergies: Coded Allergies: NO KNOWN ALLERGIES (Unverified , 09/06/23) Home Meds Active Scripts Fluconazole (Diflucan) 200 Mg Tab, 1 TAB PO DAILY, #20 TAB Prov:BALDOMERO CHAVIRA MD 06/16/24 Ciprofloxacin Hcl (Cipro) 500 Mg Tab, 1 TAB PO BID, #20 TAB Prov:BALDOMERO CHAVIRA MD 06/16/24 Reported Medications Dutasteride (Avodart) 0.5 Mg Cap, 0.5 MG PO DAILY, CAP 06/15/24 Losartan Potassium (Losartan Potassium) 25 Mg Tab, 25 MG PO DAILY, TAB 06/15/24 Tadalafil (Cialis) 5 Mg Tab, 5 MG PO DAILY, TAB 06/15/24 Metformin Hydrochloride (Metformin Hcl) 1,000 Mg Tab, 1 TAB PO BID, #60 TAB 5 Refills 03/07/24 Home Meds Home medications reviewed. Current Medications Current Medications Medications (Trade) Dose Ordered Sig/Ney Route PRN Reason Start Time Stop Time Status Last Admin Doxycycline Hyclate 100 ml @ 50 mls/hr Q12H IV 12/14/24 21:00 12/15/24 08:56 Ceftriaxone Sodium 50 ml @ 100 mls/hr DAILY@09 IV 12/15/24 09:00 12/15/24 08:39 Diagnostic Test (Pha) (Accu-Chek Comfort Curve T) 1 strip ACHS 12/14/24 22:00 12/15/24 06:32 Insulin Human Regular (InsuLIN R) HS SC 12/14/24 22:00 12/14/24 22:08 Insulin Human Regular (InsuLIN R) AC SC 12/15/24 07:00 Dextrose 50 ml UD PRN IV Blood Sugar LESS THAN 60 12/14/24 21:00 Sodium Chloride (Saline Lock Ns) 10 ml Q8HR IV 12/14/24 22:00 12/15/24 06:07 Acetaminophen/ Hydrocodone Bitart ([place] 5/325MG Tab) 1 tab Q4HP PRN PO MODERATE PAIN (4-6 PAIN SCALE) 12/14/24 21:00 Ondansetron HCl (Zofran) 4 mg Q4HP PRN IV NAUSEA / VOMITING 12/14/24 21:00 Docusate Sodium (Colace Capsule) 100 mg BIDPRN PRN PO FOR CONSTIPATION 12/14/24 21:00 Acetaminophen (Tylenol Tablet) 650 mg Q6HP PRN PO PAIN SCALE 1-3 OR TEMP>100.4 12/14/24 21:00 Nitroglycerin (Ntrostat Sublingual) 0.4 mg Q5MINP PRN SL FOR CHEST PAIN 12/14/24 22:30 Morphine Sulfate 2 mg Q30M PRN IV FOR CHEST PAIN 12/14/24 22:30 Review of Systems Constitutional: Generalized weakness Ears, Nose, & Throat: No symptom reported Eyes: No symptom reported Neurological: Altered level of mentation Pulmonary/Respiratory: No symptoms reported Cardiovascular: No symptom reported Gastrointestinal: No symptom reported Genitourinary: No symptom reported Musculoskeletal: No symptom reported Skin: No symptom reported Psychiatric: No symptom reported Endocrine: No symptom reported Hematologic/Lymphatic: No symptom reported Vital Signs Vital Signs Date Time Temp Pulse Resp B/P (MAP) Pulse Ox O2 Delivery O2 Flow Rate FiO2 12/15/24 09:06 132 12/15/24 08:00 98.4 25 96/51 (66) 94 98.4 12/15/24 08:00 Room Air* 0 21 Physical Exam General Appearance: Cooperative. Well-developed. Well-nourished. No acute distress. Pulmonary/Respiratory: Clear, bilateral breaths sounds. Cardiovascular/Chest: Regular rate and rhythm. Peripheral Pulses: 2+ Radial (R). 2+ Radial (L). 2+ Pedal (R). 2+ Pedal (L) Abdominal Exam: Normal bowel sounds. Ankle Exam: Negative ankle edema Lower extremities: Negative lower extremity edema Neuro/Mental Status: A/OX3, coherent. Thoughts/Psych: Normal thought pattern. Appropriate mood and affect. Good judgment and insight. Appearance: No acute distress. Skin Exam: Normal inspection. Normal color. Warm and dry. Labs/Diagnostic Data Labs Test 12/15/24 06:28 12/15/24 06:02 12/14/24 22:05 12/14/24 21:23 Range/Units POC Glucose 129 H 70-106 mg/dl White Blood Count 17.8 H 4.4-10.8 10^3/uL Red Blood Count 3.67 L 4.5-5.90 10^6/uL Hemoglobin 9.1 L 13.5-17.5 g/dL Hematocrit 28.7 L 41.0-53.0 % Mean Corpuscular Volume 78.2 L 80.0-100.0 fL Mean Corpuscular Hemoglobin 24.7 L 28.0-32.0 pg Mean Corpuscular Hemoglobin Concent 31.6 L 32.0-36.0 g/dL Red Cell Distribution Width 16.9 H 11.8-14.3 % Platelet Count 173 140-450 10^3/uL Mean Platelet Volume 10.9 H 6.9-10.8 fL Neutrophils (%) (Auto) 87.0 H 37.0-80.0 % Lymphocytes (%) (Auto) 6.4 L 10.0-50.0 % Monocytes (%) (Auto) 5.3 0.0-12.0 % Eosinophils (%) (Auto) 1.0 0.0-7.0 % Basophils (%) (Auto) 0.3 0.0-2.0 % Neutrophils # (Auto) 15.4 H 1.6-8.6 10 ^3/uL Lymphocytes # (Auto) 1.1 0.4-5.4 10 ^3/uL Monocytes # (Auto) 0.9 0-1.3 10 ^3/uL Eosinophils # (Auto) 0.2 0-0.8 10 ^3/uL Basophils # (Auto) 0.1 0-0.2 10 ^3/uL Nucleated Red Blood Cells 0.0 % Sodium Level 134 L 136-145 mmol/L Potassium Level 3.8 3.5-5.1 mmol/L Chloride Level 102 98-107 mmol/L Carbon Dioxide Level 23 20-31 mmol/L Anion Gap 9 5-15 Blood Urea Nitrogen 35 #H 9-23 mg/dL Creatinine 1.29 0.700-1.30 mg/dL Glomerular Filtration Rate Calc 53 >90 mL/min BUN/Creatinine Ratio 27.1 H 10.0-20.0 Serum Glucose 138 H 74-106 mg/dL Calcium Level 9.0 8.7-10.4 mg/dL Magnesium Level 1.4 L 1.6-2.6 mg/dL Total Bilirubin 0.4 0.2-1.0 mg/dL Aspartate Amino Transferase (AST) 33 13-40 U/L Alanine Aminotransferase (ALT) 10 7-40 U/L Alkaline Phosphatase 116 46-116 U/L Total Protein 6.9 5.7-8.2 g/dL Albumin 3.1 L 3.2-4.8 g/dL Triglycerides Level 96 < 150 mg/dL Cholesterol Level 101 < 200 mg/dL LDL Cholesterol 70 < 100 mg/dL HDL Cholesterol 20 L 40-59 mg/dL Thyroid Stimulating Hormone (TSH) 2.53 0.55-4.78 uIU/mL Troponin I High Sensitivity 10 </=54 ng/L Lactic Acid Level 4.2 *H 0.4-2.0 mmol/L Test 12/14/24 20:40 12/14/24 19:10 Range/Units Urine Color Colorless Yellow Urine Clarity Ex.turbid Clear Urine pH 7.0 5.0-9.0 Urine Specific [place] 1.012 1.001-1.035 Urine Protein 1+ H Negative Urine Ketones Negative Negative Urine Blood 3+ H Negative /uL Urine Nitrite Negative Negative Urine Bilirubin Negative Negative Urine Urobilinogen Normal Negative mg/dL Urine Leukocyte Esterase 3+ Negative /uL Urine RBC 55 0 - 3 /hpf Urine WBC Clumps Present None Seen /hpf Urine Microscopic WBC 119 H 0-3 /HPF Urine Squamous Epithelial Cells None seen <5 /hpf Urine Bacteria Few H None Seen /hpf Urine Glucose Normal Normal mg/dL Influenza Type A Antigen Negative Negative Influenza Type B Antigen Negative Negative SARS-CoV-2 Antigen (Rapid) Negative NEGATIVE B-Type Natriuretic Peptide 34.69 0-100 pg/mL Assessment Sepsis likely secondary to urinary tract infection Sinus tachycardia secondary to above Bladder cancer Chronic Stiles Type 2 diabetes mellitus Hypomagnesemia Plan/Recommendation We will continue with following plan/recommendations (Dr. Musa): Patient seen and examined at bedside with . We will proceed with obtaining a transthoracic echocardiogram to evaluate cardiac function. Sinus tachycardia likely secondary to sepsis and urinary tract infection. We will recommend to treat the underlying cause. Continue with antibiotics as per primary care team. Thank you for allowing us to care for this patient. Please call with any questions or concerns. Critical care time spent: 41 minutes This medical document was created using an electronic medical record system with voice recognition software and computerized dictation system. Although this document has been carefully reviewed, there might still be some phonetic and typographical errors. Occasional wrong-word or ``sound-alike substitutions may have occurred due to the inherent limitations of voice recognition software. These areas are purely typographical due to imperfections of the software programs and do not reflect any compromise in the patient's medical care. Please read the chart carefully and recognize, using context, where these substitutions have occurred. Plan discussed with: Patient NYHA Physical activity limitations: NA Date of Service: Dec 15, 2024 Billing Provider: CARMEN CHATTERJEE Cardiology Common Codes: [id number] INP/OBS CARE (High) Cardiology Consultation Codes: [id number] CONSULT <45MIN CARMEN CHATTERJEE Dec 15, 2024 10:03
[2024-12-15 12:49] VITALS: BP 101/51; PULSE 124; RESP 20; TEMP 97.8; O2SAT 95
[2024-12-15 17:10] VITALS: BP 105/55; PULSE 136; RESP 19; TEMP 97.4; O2SAT 93
[2024-12-15 20:00] VITALS: PULSE 121
[2024-12-15] MEDS: SODIUM CHLORIDE 0.9% 500 ML IV ONE (20:06)
--- NOTE | 2024-12-15 20:55 | DVHPN2 ---
Subjective in bed resting Changes from previous H/P or p: No Changes Eyes: No Pain, No Vision change, No Conjunctivae inflammation, No Eyelid inflammation, No Other, No Redness ENT: No Ear pain, No Ear discharge, No Nose pain, No Nose discharge, No Nose congestion, No Mouth pain, No Mouth swelling, No Throat pain, No Throat swelling, No Other Cardiovascular: No Chest Pain, No Palpitations, No Orthopnea, No Paroxysmal Noc. Dyspnea, No Edema, No Lt Headedness, No Other Respiratory: No Cough, No Dry, No Shortness of breath, No SOB with excertion, No Wheezing, No Hemoptysis, No Pleuritic Pain, No Sputum, No Other Gastrointestinal: No Nausea, No Vomiting, No Abdominal Pain, No Diarrhea, No Constipation, No Melena, No Hematochezia, No Other Genitourinary: No Dysuria, No Frequency, No Incontinence, No Hematuria, No Retention; Other (Stiles catheter in place) Musculoskeletal: No other, No neck pain, No shoulder pain, No arm pain, No back pain, No hand pain, No leg pain, No foot pain Skin: No Rash, No Lesions, No Jaundice, No Bruising, No Other Objective Vitals Vital Signs Date Time Temp Pulse Resp B/P (MAP) Pulse Ox O2 Delivery O2 Flow Rate FiO2 12/15/24 17:10 97.4 136 19 105/55 (72) 93 97.4 12/15/24 12:50 Room Air* 0 21 Intake/Output Intake and Output 12/15/24 05:00 Intake Total 2150 ml Output Total 1225 ml Balance 925 ml IV Total 2150 ml Output Urine Total 1225 ml General Appearance: Alert Lungs: Clear to auscultation Cardiovascular: Regular rate Medications Current Medications Medications Dose Ordered Sig/Ney Route Start Time Stop Time Status Last Admin Dose Admin Doxycycline Hyclate 100 ml @ 50 mls/hr Q12H IV 12/14/24 21:00 12/15/24 08:56 50 MLS/HR Ceftriaxone Sodium 50 ml @ 100 mls/hr DAILY@09 IV 12/15/24 09:00 12/15/24 08:39 100 MLS/HR Diagnostic Test (Pha) 1 strip ACHS 12/14/24 22:00 12/15/24 17:00 1 STRIP Insulin Human Regular HS SC 12/14/24 22:00 12/14/24 22:08 2 UNITS Insulin Human Regular AC SC 12/15/24 07:00 12/15/24 11:56 3 UNITS Dextrose 50 ml UD PRN IV 12/14/24 21:00 Sodium Chloride 10 ml Q8HR IV 12/14/24 22:00 12/15/24 14:00 10 ML Acetaminophen/ Hydrocodone Bitart 1 tab Q4HP PRN PO 12/14/24 21:00 Ondansetron HCl 4 mg Q4HP PRN IV 12/14/24 21:00 Docusate Sodium 100 mg BIDPRN PRN PO 12/14/24 21:00 Acetaminophen 650 mg Q6HP PRN PO 12/14/24 21:00 Nitroglycerin 0.4 mg Q5MINP PRN SL 12/14/24 22:30 Morphine Sulfate 2 mg Q30M PRN IV 12/14/24 22:30 Magnesium Sulfate/ Dextrose 100 ml @ 100 mls/hr Q1HR IV 12/15/24 20:00 12/15/24 21:59 Laboratory Results Laboratory Tests 12/15/24 06:02 Chemistry Test 12/15/24 06:02 Albumin 3.1 g/dL (3.2-4.8) L Calcium Level 9.0 mg/dL (8.7-10.4) Magnesium Level 1.4 mg/dL (1.6-2.6) L Total Protein 6.9 g/dL (5.7-8.2) Lipid panel Test 12/15/24 06:02 Cholesterol Level 101 mg/dL (< 200) HDL Cholesterol 20 mg/dL (40-59) L Triglycerides Level 96 mg/dL (< 150) LFT Test 12/15/24 06:02 Alanine Aminotransferase (ALT) 10 U/L (7-40) Alkaline Phosphatase 116 U/L (46-116) Aspartate Amino Transferase (AST) 33 U/L (13-40) Total Bilirubin 0.4 mg/dL (0.2-1.0) HgA1c, TSH Test 12/15/24 06:02 Hemoglobin A1c 7.7 % A1C (<5.7) H Thyroid Stimulating Hormone (TSH) 2.53 uIU/mL (0.55-4.78) Urinalysis Test 12/14/24 20:40 Urine Color Colorless (Yellow) Urine Clarity Ex.turbid (Clear) Urine pH 7.0 (5.0-9.0) Urine Specific [address] 1.012 (1.001-1.035) Urine Protein 1+ (Negative) H Urine Ketones Negative (Negative) Urine Blood 3+ /uL (Negative) H Urine Nitrite Negative (Negative) Urine Bilirubin Negative (Negative) Urine Urobilinogen Normal mg/dL (Negative) Urine Leukocyte Esterase 3+ /uL (Negative) Urine RBC 55 /hpf (0 - 3) Urine WBC Clumps Present /hpf (None Seen) Urine Microscopic WBC 119 /HPF (0-3) H Urine Squamous Epithelial Cells None seen /hpf (<5) Urine Bacteria Few /hpf (None Seen) H Urine Glucose Normal mg/dL (Normal) Microbiology Microbiology Date/Time Source Procedure Growth Status 12/14/24 19:10 Blood Blood Culture - Preliminary NO GROWTH AFTER 24 HOURS OF INCUBATION. Resulted Assessment/Plan Assessment/Plan Sepsis, unspecified organism Hypoalbuminemia Altered mental status Hypotension Generalized weakness Sinus tachycardia Pneumonia, unspecified organism UTI (urinary tract infection) Complicated UTI (urinary tract infection) Plan 1. Admit to telemetry unit 2. Breathing treatment 3. Pain control management 4. IV antibiotic management 5. Management of fluids and electrolytes 6. Consultation for hospitalist 7. Diagnostic test chest x-ray 8. DVT prophylaxis-on SCDs 9. Repeat labs CBC, CMP in a.m. 10. Home medication reviewed and reconciled 11. Continue with current medical management 12. Treatment plan discussed with patient and RN. Patient verbalized understanding. Plan discussed with: Patient Date of Service: Dec 15, 2024 Billing Provider: JAMES PADRON MD Common Visit Codes: [id number] INP/OBS CARE(HIGH) JAMES PADRON MD Dec 15, 2024 20:55
[2024-12-15 21:00] VITALS: BP 106/51; PULSE 125; RESP 26; TEMP 98.9; O2SAT 93
[2024-12-15] MEDS: MAGNESIUM SULFATE 1GM/100ML 100 ML IV SCH (21:14)
[2024-12-15 22:10] LABS: Lactic Acid w/Reflex 2.2 mmol/L (0.4-2.0)
--- NOTE | 2024-12-15 23:26 | DVHINCON2 ---
Date Seen: Dec 15, 2024 Referring Physician VIGRINIA Gudino Reason for Consultation Tachycardia History of Present Illness This is a Austrian-speaking 89-year-old male with a past medical history of bladder cancer, frequent urinary tract infections, chronic Stiles catheter, and type 2 diabetes mellitus who presents to the ED with complaints of generalized weakness, altered level of mentation, and foul-smelling urine. At the time of assessment, the patient has episodes of confusion. Spoke with the patient's son/caregiver, Rasta who was better able to provide an accurate history. Per son, he noticed that the patient began to have episodes of confusion and weakness yesterday morning. He also noted a foul smell coming from the patient's Stiles catheter. He decided to bring the patient in for further evaluation. Cardiology has been consulted at this time for tachycardia. Initial twelve lead electrocardiogram reveals sinus tachycardia with artifact. Initial troponin level of 13ng/L with flat trend thereafter. WBC 17.8, HGB 9.1, HCT 28.7. Chest x-ray shows pulmonary congestion and edema. Patient does not follow a road equipment operator in the outpatient setting. Per the patient's son he is scheduled to follow up with an oncologist at [facility] later this month on 01/04/25. Patient was admitted to the hospital. I am asked to consult on this patient. Family History: Patient reports no known family medical history. Allergies: Coded Allergies: NO KNOWN ALLERGIES (Unverified , 09/06/23) Home Meds Active Scripts Fluconazole (Diflucan) 200 Mg Tab, 1 TAB PO DAILY, #20 TAB Prov:BALDOMERO CHAVIRA MD 06/16/24 Ciprofloxacin Hcl (Cipro) 500 Mg Tab, 1 TAB PO BID, #20 TAB Prov:BALDOMERO CHAVIRA MD 06/16/24 Reported Medications Dutasteride (Avodart) 0.5 Mg Cap, 0.5 MG PO DAILY, CAP 06/15/24 Losartan Potassium (Losartan Potassium) 25 Mg Tab, 25 MG PO DAILY, TAB 06/15/24 Tadalafil (Cialis) 5 Mg Tab, 5 MG PO DAILY, TAB 06/15/24 Metformin Hydrochloride (Metformin Hcl) 1,000 Mg Tab, 1 TAB PO BID, #60 TAB 5 Refills 03/07/24 Current Medications Current Medications Medications (Trade) Dose Ordered Sig/Ney Route PRN Reason Start Time Stop Time Status Last Admin Ceftriaxone Sodium 50 ml @ 100 mls/hr DAILY@09 IV 12/15/24 09:00 12/15/24 08:39 Insulin Human Regular (InsuLIN R) AC SC 12/15/24 07:00 12/15/24 11:56 Nitroglycerin (Ntrostat Sublingual) 0.4 mg Q5MINP PRN SL FOR CHEST PAIN 12/14/24 22:30 Morphine Sulfate 2 mg Q30M PRN IV FOR CHEST PAIN 12/14/24 22:30 Magnesium Sulfate/ Dextrose 100 ml @ 100 mls/hr Q1HR IV 12/15/24 20:00 12/15/24 21:59 DC 12/15/24 21:14 Review of Systems Constitutional: Generalized weakness Ears, Nose, & Throat: No symptom reported Eyes: No symptom reported Neurological: Altered level of mentation Pulmonary/Respiratory: No symptoms reported Cardiovascular: No symptom reported Gastrointestinal: No symptom reported Genitourinary: No symptom reported Musculoskeletal: No symptom reported Skin: No symptom reported Psychiatric: No symptom reported Endocrine: No symptom reported Hematologic/Lymphatic: No symptom reported Vital Signs Vital Signs Date Time Temp Pulse Resp B/P (MAP) Pulse Ox O2 Delivery O2 Flow Rate FiO2 12/15/24 17:10 97.4 136 19 105/55 (72) 93 97.4 12/15/24 12:50 Room Air* 0 21 Physical Exam GENERAL: Awake, alert, oriented. LUNGS: Clear. CARDIOVASCULAR: Heart sounds are good. ABDOMEN: Soft. Labs/Diagnostic Data Labs Test 12/15/24 20:57 12/15/24 20:52 12/15/24 06:02 12/14/24 22:05 Range/Units POC Glucose 198 H 70-106 mg/dl White Blood Count 17.8 H 4.4-10.8 10^3/uL Red Blood Count 3.67 L 4.5-5.90 10^6/uL Hemoglobin 9.1 L 13.5-17.5 g/dL Hematocrit 28.7 L 41.0-53.0 % Mean Corpuscular Volume 78.2 L 80.0-100.0 fL Mean Corpuscular Hemoglobin 24.7 L 28.0-32.0 pg Mean Corpuscular Hemoglobin Concent 31.6 L 32.0-36.0 g/dL Red Cell Distribution Width 16.9 H 11.8-14.3 % Platelet Count 173 140-450 10^3/uL Mean Platelet Volume 10.9 H 6.9-10.8 fL Neutrophils (%) (Auto) 87.0 H 37.0-80.0 % Lymphocytes (%) (Auto) 6.4 L 10.0-50.0 % Monocytes (%) (Auto) 5.3 0.0-12.0 % Eosinophils (%) (Auto) 1.0 0.0-7.0 % Basophils (%) (Auto) 0.3 0.0-2.0 % Neutrophils # (Auto) 15.4 H 1.6-8.6 10 ^3/uL Lymphocytes # (Auto) 1.1 0.4-5.4 10 ^3/uL Monocytes # (Auto) 0.9 0-1.3 10 ^3/uL Eosinophils # (Auto) 0.2 0-0.8 10 ^3/uL Basophils # (Auto) 0.1 0-0.2 10 ^3/uL Nucleated Red Blood Cells 0.0 % Sodium Level 134 L 136-145 mmol/L Potassium Level 3.8 3.5-5.1 mmol/L Chloride Level 102 98-107 mmol/L Carbon Dioxide Level 23 20-31 mmol/L Anion Gap 9 5-15 Blood Urea Nitrogen 35 #H 9-23 mg/dL Creatinine 1.29 0.700-1.30 mg/dL Glomerular Filtration Rate Calc 53 >90 mL/min BUN/Creatinine Ratio 27.1 H 10.0-20.0 Serum Glucose 138 H 74-106 mg/dL Hemoglobin A1c 7.7 H <5.7 % A1C Calcium Level 9.0 8.7-10.4 mg/dL Magnesium Level 1.4 L 1.6-2.6 mg/dL Total Bilirubin 0.4 0.2-1.0 mg/dL Aspartate Amino Transferase (AST) 33 13-40 U/L Alanine Aminotransferase (ALT) 10 7-40 U/L Alkaline Phosphatase 116 46-116 U/L Total Protein 6.9 5.7-8.2 g/dL Albumin 3.1 L 3.2-4.8 g/dL Triglycerides Level 96 < 150 mg/dL Cholesterol Level 101 < 200 mg/dL LDL Cholesterol 70 < 100 mg/dL HDL Cholesterol 20 L 40-59 mg/dL Thyroid Stimulating Hormone (TSH) 2.53 0.55-4.78 uIU/mL Troponin I High Sensitivity 10 </=54 ng/L Test 12/14/24 20:40 12/14/24 19:10 Range/Units Urine Color Colorless Yellow Urine Clarity Ex.turbid Clear Urine pH 7.0 5.0-9.0 Urine Specific [place] 1.012 1.001-1.035 Urine Protein 1+ H Negative Urine Ketones Negative Negative Urine Blood 3+ H Negative /uL Urine Nitrite Negative Negative Urine Bilirubin Negative Negative Urine Urobilinogen Normal Negative mg/dL Urine Leukocyte Esterase 3+ Negative /uL Urine RBC 55 0 - 3 /hpf Urine WBC Clumps Present None Seen /hpf Urine Microscopic WBC 119 H 0-3 /HPF Urine Squamous Epithelial Cells None seen <5 /hpf Urine Bacteria Few H None Seen /hpf Urine Glucose Normal Normal mg/dL Influenza Type A Antigen Negative Negative Influenza Type B Antigen Negative Negative SARS-CoV-2 Antigen (Rapid) Negative NEGATIVE B-Type Natriuretic Peptide 34.69 0-100 pg/mL Microbiology Date/Time Source Procedure Growth Status 12/14/24 19:10 Blood Blood Culture - Preliminary NO GROWTH AFTER 24 HOURS OF INCUBATION. Resulted Assessment Sepsis likely secondary to urinary tract infection. Sinus tachycardia secondary to above. Bladder cancer. Chronic Stiles. Type 2 diabetes mellitus. Hypomagnesemia. Plan/Recommendation I agree with your ongoing assessment and care of plan. Patient has been seen by Nora Vega NP on my behalf, her and I discussed the plan with the patient. Telemetry reviewed. We will proceed with obtaining a transthoracic echocardiogram to evaluate cardiac function. Sinus tachycardia likely secondary to sepsis and urinary tract infection. We will recommend to treat the underlying cause. Continue with antibiotics as per primary care team. Additional plan as per the hospital course. Plan discussed with: Patient NYHA Physical activity limitations: NA Date of Service: Dec 15, 2024 Billing Provider: STEPHON BORGES MD Cardiology Common Codes: [id number] INP/OBS CARE (High) Cardiology Consultation Codes: [id number] CONSULT <45MIN STEPHON BORGES MD Dec 15, 2024 22:12
[2024-12-16] VITALS (8 sets, daily range): BP systolic 98–110; BP diastolic 50–61; PULSE 103–125; RESP 18–24; TEMP 97.5–99.7; O2SAT 97–99
[2024-12-16] MEDS: MAGNESIUM SULFATE 1GM/100ML 100 ML IV ONE (00:39)
--- NOTE | 2024-12-16 19:10 | DVHPN2 ---
Subjective in bed resting Changes from previous H/P or p: No Changes Eyes: No Pain, No Vision change, No Conjunctivae inflammation, No Eyelid inflammation, No Other, No Redness ENT: No Ear pain, No Ear discharge, No Nose pain, No Nose discharge, No Nose congestion, No Mouth pain, No Mouth swelling, No Throat pain, No Throat swelling, No Other Cardiovascular: No Chest Pain, No Palpitations, No Orthopnea, No Paroxysmal Noc. Dyspnea, No Edema, No Lt Headedness, No Other Respiratory: No Cough, No Dry, No Shortness of breath, No SOB with excertion, No Wheezing, No Hemoptysis, No Pleuritic Pain, No Sputum, No Other Gastrointestinal: No Nausea, No Vomiting, No Abdominal Pain, No Diarrhea, No Constipation, No Melena, No Hematochezia, No Other Genitourinary: No Dysuria, No Frequency, No Incontinence, No Hematuria, No Retention; Other (Stiles catheter in place) Musculoskeletal: No other, No neck pain, No shoulder pain, No arm pain, No back pain, No hand pain, No leg pain, No foot pain Skin: No Rash, No Lesions, No Jaundice, No Bruising, No Other Objective Vitals Vital Signs Date Time Temp Pulse Resp B/P (MAP) Pulse Ox O2 Delivery O2 Flow Rate FiO2 12/16/24 16:48 97.7 106 19 110/61 (77) 98 97.7 12/16/24 08:15 Nasal Cannula* 2 28 Intake/Output Intake and Output 12/16/24 05:00 Intake Total 950 ml Output Total 1700 ml Balance -750 ml Intake Oral 0 ml IV Total 950 ml Output Urine Total 1700 ml General Appearance: Alert Lungs: Clear to auscultation Cardiovascular: Regular rate Medications Current Medications Medications Dose Ordered Sig/Ney Route Start Time Stop Time Status Last Admin Dose Admin Doxycycline Hyclate 100 ml @ 50 mls/hr Q12H IV 12/14/24 21:00 12/16/24 10:58 50 MLS/HR Ceftriaxone Sodium 50 ml @ 100 mls/hr DAILY@09 IV 12/15/24 09:00 12/16/24 10:58 100 MLS/HR Diagnostic Test (Pha) 1 strip ACHS 12/14/24 22:00 12/16/24 17:00 1 STRIP Insulin Human Regular HS SC 12/14/24 22:00 12/15/24 21:21 3 UNITS Insulin Human Regular AC SC 12/15/24 07:00 12/16/24 11:49 6 UNITS Dextrose 50 ml UD PRN IV 12/14/24 21:00 Sodium Chloride 10 ml Q8HR IV 12/14/24 22:00 12/16/24 14:00 10 ML Acetaminophen/ Hydrocodone Bitart 1 tab Q4HP PRN PO 12/14/24 21:00 Ondansetron HCl 4 mg Q4HP PRN IV 12/14/24 21:00 Docusate Sodium 100 mg BIDPRN PRN PO 12/14/24 21:00 Acetaminophen 650 mg Q6HP PRN PO 12/14/24 21:00 Nitroglycerin 0.4 mg Q5MINP PRN SL 12/14/24 22:30 Morphine Sulfate 2 mg Q30M PRN IV 12/14/24 22:30 Laboratory Results Laboratory Tests 12/15/24 06:02 Urinalysis Test 12/14/24 20:40 Urine Color Colorless (Yellow) Urine Clarity Ex.turbid (Clear) Urine pH 7.0 (5.0-9.0) Urine Specific [place] 1.012 (1.001-1.035) Urine Protein 1+ (Negative) H Urine Ketones Negative (Negative) Urine Blood 3+ /uL (Negative) H Urine Nitrite Negative (Negative) Urine Bilirubin Negative (Negative) Urine Urobilinogen Normal mg/dL (Negative) Urine Leukocyte Esterase 3+ /uL (Negative) Urine RBC 55 /hpf (0 - 3) Urine WBC Clumps Present /hpf (None Seen) Urine Microscopic WBC 119 /HPF (0-3) H Urine Squamous Epithelial Cells None seen /hpf (<5) Urine Bacteria Few /hpf (None Seen) H Urine Glucose Normal mg/dL (Normal) Microbiology Microbiology Date/Time Source Procedure Growth Status 12/14/24 19:10 Blood Blood Culture - Preliminary NO GROWTH AFTER 24 HOURS OF INCUBATION. Resulted Assessment/Plan Assessment/Plan Sepsis, unspecified organism Hypoalbuminemia Altered mental status Hypotension Generalized weakness Sinus tachycardia Pneumonia, unspecified organism UTI (urinary tract infection) Complicated UTI (urinary tract infection) Plan Continue IV abx with Ceftriaxone pending urien cx Plan discussed with: Patient My Orders Orders - JAMES PADRON MD Procedure Category Date Status Time * Wound Consult CONS 12/16/24 Transmitted Apply Barrier Cream NICHOLAS 12/16/24 In Process 13:30 * Dietary Consult CONS 12/16/24 Transmitted 16:13 Date of Service: Dec 16, 2024 Billing Provider: JAMES PDARON MD Common Visit Codes: [id number] INP/OBS CARE(HIGH) JAMES PADRON MD Dec 16, 2024 19:10
--- NOTE | 2024-12-16 23:23 | DVHPN2 ---
Progress Note - Dictate Date Seen: Dec 16, 2024 Medical Necessity Reason Pt with a Central, PICC or Fol: No Subjective Patient was seen and evaluated in follow up. Family at bedside. Patient is complaining of buttocks discomfort. Patient received wound care earlier today. Echocardiogram is ordered. Telemetry reviewed. vital signs Vital Sign Date Time Temp Pulse Resp B/P (MAP) Pulse Ox O2 Delivery O2 Flow Rate FiO2 12/16/24 16:48 97.7 106 19 110/61 (77) 98 97.7 12/16/24 08:15 Nasal Cannula* 2 28 Total Intake and Output 12/15/24 12/15/24 12/16/24 14:59 22:59 06:59 Intake Total 150 ml 600 ml 200 ml Output Total 400 ml 200 ml Balance 150 ml 200 ml 0 ml medications Current Medications Medications Dose Ordered Sig/Ney Route Start Time Stop Time Status Last Admin Dose Admin Ceftriaxone Sodium 50 ml @ 100 mls/hr DAILY@09 IV 12/15/24 09:00 12/16/24 10:58 100 MLS/HR Diagnostic Test (Pha) 1 strip ACHS 12/14/24 22:00 12/16/24 21:42 1 STRIP Insulin Human Regular HS SC 12/14/24 22:00 12/16/24 21:42 3 UNITS Insulin Human Regular AC SC 12/15/24 07:00 12/16/24 11:49 6 UNITS Dextrose 50 ml UD PRN IV 12/14/24 21:00 Sodium Chloride 10 ml Q8HR IV 12/14/24 22:00 12/16/24 21:42 10 ML Acetaminophen/ Hydrocodone Bitart 1 tab Q4HP PRN PO 12/14/24 21:00 Ondansetron HCl 4 mg Q4HP PRN IV 12/14/24 21:00 Docusate Sodium 100 mg BIDPRN PRN PO 12/14/24 21:00 Acetaminophen 650 mg Q6HP PRN PO 12/14/24 21:00 Nitroglycerin 0.4 mg Q5MINP PRN SL 12/14/24 22:30 Morphine Sulfate 2 mg Q30M PRN IV 12/14/24 22:30 objective GENERAL: Awake, alert, oriented. LUNGS: Clear. CARDIOVASCULAR: Heart sounds are good. ABDOMEN: Soft. laboratory and microbiology Laboratory Tests 12/15/24 06:02 Test 12/15/24 06:02 Range/Units Serum Glucose 138 H 74-106 mg/dL Problem List Sepsis likely secondary to urinary tract infection. Sinus tachycardia secondary to above. Bladder cancer. Chronic Stiles. Type 2 diabetes mellitus. Hypomagnesemia. Assessment/Plan Continued all current supportive medical care. Transthoracic echocardiogram to evaluate cardiac function. IV antibiotics as ordered. Morphine and [place] for pain management. Nitro SL. Additional plan as per the hospital course. Plan discussed with: Patient STEPHON BORGES MD Dec 16, 2024 22:34
[2024-12-17] VITALS (8 sets, daily range): BP systolic 91–112; BP diastolic 49–58; PULSE 99–115; RESP 18–19; TEMP 97.6–98.7; O2SAT 97–99
--- NOTE | 2024-12-17 00:25 | DVHSR ---
APPROVED REPORT EXAM: LIMITED Two-dimensional and M-mode echocardiogram with Doppler and color Doppler. Blood Pressure: 98/50 mmHg INDICATION Evaluate cardiac function RISK FACTORS Height: 5'6", Weight: 151 DIMENSIONS LVDd3.3 (3.8-5.7cm)LA (2D) (1.9-4.0cm)Aortic Root3.9 (2.0-3.7cm) LVDs2.2 (2.5-4.0cm)LA (MM) (1.9-4.0cm)Aortic Cusp Exc1.2 (1.5-2.0cm) EF (%) 60.0 (55-70%)Rt. Atrium (1.9-4.0cm)Asc. Aorta cm IVSd1.1 (0.7-1.1cm)RV (D) (1.8-2.4cm) PWd1.0 (0.7-1.1cm) Mitral Valve MitralMitral Stenosis E/A ratio0.02D MVAcm2 Aortic Valve Aortic ValveAortic Stenosis LVOT Diameter1.8 (1.8-2.4cm)Doppler AVAcm2 Pulmonic Valve V20.91m/s Tricuspid Valve TR Velocity2.36m/s [id number] Other Information Quality : Technically LimitedRhythm : Technically limited study due to body habitus, patient altered, lying flat and uncooperative. Conclusion LVH AND LV DIASTOLIC DYSFUNCTION LV EJECTION FRACTION IS 65% MODERATELY CALCIFIED AORTIC LEAFLETS NORMAL MV,TV AND PV NO EFFUSION
[2024-12-17 12:02] LABS: Basophils # (auto) 0.1 10 ^3/uL (0-0.2); Basophils % (auto) 0.5 % (0.0-2.0); Eosinophils # (auto) 0.2 10 ^3/uL (0-0.8); Eosinophils % (auto) 1.8 % (0.0-7.0); Hematocrit 26.6 % (41.0-53.0); Hemoglobin 8.4 g/dL (13.5-17.5); Lymphocytes # (auto) 0.9 10 ^3/uL (0.4-5.4); Lymphocytes % (auto) 8.9 % (10.0-50.0); Mean Corpuscular Hemoglobin 24.7 pg (28.0-32.0); Mean Corpuscular Hgb Conc. 31.7 g/dL (32.0-36.0); Mean Corpuscular Volume 77.9 fL (80.0-100.0); Monocytes # (auto) 0.7 10 ^3/uL (0-1.3); Neutrophils # (auto) 8.5 10 ^3/uL (1.6-8.6); Neutrophils % (auto) 81.8 % (37.0-80.0); Platelet Count (auto) 159 10^3/uL (140-450); Red Blood Cells 3.41 10^6/uL (4.5-5.90); White Blood Cell 10.3 10^3/uL (4.4-10.8)
[2024-12-17 12:10] LABS: Chloride 103 mmol/L (98-107)
[2024-12-17 12:11] LABS: Anion Gap 7 (5-15); Calcium 9.1 mg/dL (8.7-10.4); Carbon Dioxide 24 mmol/L (20-31)
[2024-12-17 12:12] LABS: Sodium 134 mmol/L (136-145)
[2024-12-17 12:16] LABS: BUN/Creatinine Ratio 27.8 (10.0-20.0)
[2024-12-17 12:21] LABS: Blood Urea Nitrogen 27 mg/dL (9-23); Glucose 131 mg/dL (74-106)
--- NOTE | 2024-12-17 19:36 | DVHPN2 ---
Subjective in bed resting Changes from previous H/P or p: No Changes Eyes: No Pain, No Vision change, No Conjunctivae inflammation, No Eyelid inflammation, No Other, No Redness ENT: No Ear pain, No Ear discharge, No Nose pain, No Nose discharge, No Nose congestion, No Mouth pain, No Mouth swelling, No Throat pain, No Throat swelling, No Other Cardiovascular: No Chest Pain, No Palpitations, No Orthopnea, No Paroxysmal Noc. Dyspnea, No Edema, No Lt Headedness, No Other Respiratory: No Cough, No Dry, No Shortness of breath, No SOB with excertion, No Wheezing, No Hemoptysis, No Pleuritic Pain, No Sputum, No Other Gastrointestinal: No Nausea, No Vomiting, No Abdominal Pain, No Diarrhea, No Constipation, No Melena, No Hematochezia, No Other Genitourinary: No Dysuria, No Frequency, No Incontinence, No Hematuria, No Retention; Other (Stiles catheter in place) Musculoskeletal: No other, No neck pain, No shoulder pain, No arm pain, No back pain, No hand pain, No leg pain, No foot pain Skin: No Rash, No Lesions, No Jaundice, No Bruising, No Other Objective Vitals Vital Signs Date Time Temp Pulse Resp B/P (MAP) Pulse Ox O2 Delivery O2 Flow Rate FiO2 12/17/24 17:09 98.1 106 19 112/58 (76) 97 98.1 12/17/24 08:15 Nasal Cannula* 2 28 Intake/Output Intake and Output 12/17/24 05:00 Intake Total 800 ml Output Total 1200 ml Balance -400 ml Intake Oral 650 ml IV Total 150 ml Output Urine Total 1200 ml # Bowel Movements 1 General Appearance: Alert Lungs: Clear to auscultation Cardiovascular: Regular rate Medications Current Medications Medications Dose Ordered Sig/Ney Route Start Time Stop Time Status Last Admin Dose Admin Ceftriaxone Sodium 50 ml @ 100 mls/hr DAILY@09 IV 12/15/24 09:00 12/17/24 10:32 100 MLS/HR Diagnostic Test (Pha) 1 strip ACHS 12/14/24 22:00 12/17/24 16:27 1 STRIP Insulin Human Regular HS SC 12/14/24 22:00 12/16/24 21:42 3 UNITS Insulin Human Regular AC SC 12/15/24 07:00 12/17/24 16:27 3 UNITS Dextrose 50 ml UD PRN IV 12/14/24 21:00 Sodium Chloride 10 ml Q8HR IV 12/14/24 22:00 12/17/24 14:25 10 ML Acetaminophen/ Hydrocodone Bitart 1 tab Q4HP PRN PO 12/14/24 21:00 Ondansetron HCl 4 mg Q4HP PRN IV 12/14/24 21:00 Docusate Sodium 100 mg BIDPRN PRN PO 12/14/24 21:00 Acetaminophen 650 mg Q6HP PRN PO 12/14/24 21:00 Nitroglycerin 0.4 mg Q5MINP PRN SL 12/14/24 22:30 Morphine Sulfate 2 mg Q30M PRN IV 12/14/24 22:30 Enteral Nutritional Formula 240 ml DAILY@BREAKFAST PO 12/18/24 08:00 Laboratory Results Laboratory Tests 12/17/24 11:51 Chemistry Test 12/17/24 11:51 Calcium Level 9.1 mg/dL (8.7-10.4) Urinalysis Test 12/14/24 20:40 Urine Color Colorless (Yellow) Urine Clarity Ex.turbid (Clear) Urine pH 7.0 (5.0-9.0) Urine Specific [place] 1.012 (1.001-1.035) Urine Protein 1+ (Negative) H Urine Ketones Negative (Negative) Urine Blood 3+ /uL (Negative) H Urine Nitrite Negative (Negative) Urine Bilirubin Negative (Negative) Urine Urobilinogen Normal mg/dL (Negative) Urine Leukocyte Esterase 3+ /uL (Negative) Urine RBC 55 /hpf (0 - 3) Urine WBC Clumps Present /hpf (None Seen) Urine Microscopic WBC 119 /HPF (0-3) H Urine Squamous Epithelial Cells None seen /hpf (<5) Urine Bacteria Few /hpf (None Seen) H Urine Glucose Normal mg/dL (Normal) Microbiology Microbiology Date/Time Source Procedure Growth Status 12/14/24 19:10 Blood Blood Culture - Preliminary NO GROWTH AFTER 48 HOURS OF INCUBATION. Resulted Assessment/Plan Assessment/Plan Sepsis, unspecified organism Hypoalbuminemia Altered mental status Hypotension Generalized weakness Sinus tachycardia Pneumonia, unspecified organism UTI (urinary tract infection) Complicated UTI (urinary tract infection) Plan Continue IV abx with Ceftriaxone pending urien cx Plan discussed with: Patient My Orders Orders - JAMES PADRON MD Procedure Category Date Status Time Nutritional PHA 2/10/25 In Process Supplements (Glucerna 08:00 Date of Service: Dec 17, 2024 Billing Provider: JAMES PADRON MD Common Visit Codes: [id number] INP/OBS CARE(HIGH) JAMES PADRON MD Dec 17, 2024 19:36
--- NOTE | 2024-12-17 23:20 | DVHPN2 ---
Progress Note - Dictate Date Seen: Dec 17, 2024 Medical Necessity Reason Pt with a Central, PICC or Fol: No Subjective Patient was seen and evaluated in follow up. Family at bedside. Patient is complaining of buttocks discomfort. HGB 8.4, HCT 26.6, BUN 27. Echocardiogram showed an EF of 65%. Telemetry reviewed. vital signs Vital Sign Date Time Temp Pulse Resp B/P (MAP) Pulse Ox O2 Delivery O2 Flow Rate FiO2 12/17/24 13:34 98.0 108 19 107/57 (74) 97 98.0 12/17/24 08:15 Nasal Cannula* 2 28 Total Intake and Output 12/16/24 12/16/24 12/17/24 15:00 23:00 07:00 Intake Total 150 ml 250 ml 400 ml Output Total 600 ml 600 ml Balance 150 ml -350 ml -200 ml medications Current Medications Medications Dose Ordered Sig/Ney Route Start Time Stop Time Status Last Admin Dose Admin Ceftriaxone Sodium 50 ml @ 100 mls/hr DAILY@09 IV 12/15/24 09:00 12/17/24 10:32 100 MLS/HR Diagnostic Test (Pha) 1 strip ACHS 12/14/24 22:00 12/17/24 16:27 1 STRIP Insulin Human Regular HS SC 12/14/24 22:00 12/16/24 21:42 3 UNITS Insulin Human Regular AC SC 12/15/24 07:00 12/17/24 16:27 3 UNITS Dextrose 50 ml UD PRN IV 12/14/24 21:00 Sodium Chloride 10 ml Q8HR IV 12/14/24 22:00 12/17/24 14:25 10 ML Acetaminophen/ Hydrocodone Bitart 1 tab Q4HP PRN PO 12/14/24 21:00 Ondansetron HCl 4 mg Q4HP PRN IV 12/14/24 21:00 Docusate Sodium 100 mg BIDPRN PRN PO 12/14/24 21:00 Acetaminophen 650 mg Q6HP PRN PO 12/14/24 21:00 Nitroglycerin 0.4 mg Q5MINP PRN SL 12/14/24 22:30 Morphine Sulfate 2 mg Q30M PRN IV 12/14/24 22:30 Enteral Nutritional Formula 240 ml DAILY@BREAKFAST PO 12/18/24 08:00 objective GENERAL: Awake, alert, oriented. LUNGS: Clear. CARDIOVASCULAR: Heart sounds are good. ABDOMEN: Soft. laboratory and microbiology Laboratory Tests 12/17/24 11:51 Test 12/17/24 11:51 Range/Units Serum Glucose 131 H 74-106 mg/dL Problem List Sepsis likely secondary to urinary tract infection. Sinus tachycardia secondary to above. Bladder cancer. Chronic Stiles. Type 2 diabetes mellitus. Hypomagnesemia. Assessment/Plan Continued all current supportive medical care. IV antibiotics as ordered. Morphine and [place] for pain management. Nitro SL. Additional plan as per the hospital course. Dietary Evaluation Review Comments: 1) Initiate Glucerna qd d/t low PO intake 2) Continue to monitor PO intake, labs, and skin integrity Expected Outcomes/Goals: 1) appetite and labs to improve 2) wound to improve 3) f/u in 3-5 days Food and Nutrition Intake (Mod: <75% est energy req 7days Plan discussed with: Patient STEPHON BORGES MD Dec 17, 2024 16:44
[2024-12-18 08:15] VITALS: PULSE 108
[2024-12-18 09:00] VITALS: BP 108/55; PULSE 112; RESP 19; TEMP 97.5; O2SAT 98
[2024-12-18] MEDS: Glucerna Carbsteady SHAKE Vanilla 8oz PO SCH (09:19)
--- NOTE | 2024-12-18 11:35 | DVHPN2 ---
Subjective Complains of pain in his legs and weakness Changes from previous H/P or p: Changes Eyes: No Pain, No Vision change, No Conjunctivae inflammation, No Eyelid inflammation, No Other, No Redness ENT: No Ear pain, No Ear discharge, No Nose pain, No Nose discharge, No Nose congestion, No Mouth pain, No Mouth swelling, No Throat pain, No Throat swelling, No Other Cardiovascular: No Chest Pain, No Palpitations, No Orthopnea, No Paroxysmal Noc. Dyspnea, No Edema, No Lt Headedness, No Other Respiratory: No Cough, No Dry, No Shortness of breath, No SOB with excertion, No Wheezing, No Hemoptysis, No Pleuritic Pain, No Sputum, No Other Gastrointestinal: No Nausea, No Vomiting, No Abdominal Pain, No Diarrhea, No Constipation, No Melena, No Hematochezia, No Other Genitourinary: No Dysuria, No Frequency, No Incontinence, No Hematuria, No Retention; Other (Stiles catheter in place) Musculoskeletal: No other, No neck pain, No shoulder pain, No arm pain, No back pain, No hand pain, No leg pain, No foot pain Skin: No Rash, No Lesions, No Jaundice, No Bruising, No Other Objective Vitals Vital Signs Date Time Temp Pulse Resp B/P (MAP) Pulse Ox O2 Delivery O2 Flow Rate FiO2 12/18/24 09:00 97.5 112 19 108/55 (72) 98 97.5 12/17/24 20:00 Nasal Cannula* 2 28 Intake/Output Intake and Output 12/18/24 07:00 Intake Total 475 ml Output Total 1200 ml Balance -725 ml Intake Oral 425 ml IV Total 50 ml Output Urine Total 1200 ml General Appearance: Alert Lungs: Clear to auscultation Cardiovascular: Regular rate Medications Current Medications Medications Dose Ordered Sig/Ney Route Start Time Stop Time Status Last Admin Dose Admin Ceftriaxone Sodium 50 ml @ 100 mls/hr DAILY@09 IV 12/15/24 09:00 12/18/24 09:24 100 MLS/HR Diagnostic Test (Pha) 1 strip ACHS 12/14/24 22:00 12/18/24 10:47 1 STRIP Insulin Human Regular HS SC 12/14/24 22:00 12/17/24 21:48 3 UNITS Insulin Human Regular AC SC 12/15/24 07:00 12/18/24 10:49 3 UNITS Dextrose 50 ml UD PRN IV 12/14/24 21:00 Sodium Chloride 10 ml Q8HR IV 12/14/24 22:00 12/18/24 06:54 10 ML Acetaminophen/ Hydrocodone Bitart 1 tab Q4HP PRN PO 12/14/24 21:00 Ondansetron HCl 4 mg Q4HP PRN IV 12/14/24 21:00 Docusate Sodium 100 mg BIDPRN PRN PO 12/14/24 21:00 Acetaminophen 650 mg Q6HP PRN PO 12/14/24 21:00 Nitroglycerin 0.4 mg Q5MINP PRN SL 12/14/24 22:30 Morphine Sulfate 2 mg Q30M PRN IV 12/14/24 22:30 Enteral Nutritional Formula 240 ml DAILY@BREAKFAST PO 12/18/24 08:00 12/18/24 09:19 240 ML Laboratory Results Laboratory Tests 12/17/24 11:51 Chemistry Test 12/17/24 11:51 Calcium Level 9.1 mg/dL (8.7-10.4) Urinalysis Test 12/14/24 20:40 Urine Color Colorless (Yellow) Urine Clarity Ex.turbid (Clear) Urine pH 7.0 (5.0-9.0) Urine Specific [place] 1.012 (1.001-1.035) Urine Protein 1+ (Negative) H Urine Ketones Negative (Negative) Urine Blood 3+ /uL (Negative) H Urine Nitrite Negative (Negative) Urine Bilirubin Negative (Negative) Urine Urobilinogen Normal mg/dL (Negative) Urine Leukocyte Esterase 3+ /uL (Negative) Urine RBC 55 /hpf (0 - 3) Urine WBC Clumps Present /hpf (None Seen) Urine Microscopic WBC 119 /HPF (0-3) H Urine Squamous Epithelial Cells None seen /hpf (<5) Urine Bacteria Few /hpf (None Seen) H Urine Glucose Normal mg/dL (Normal) Microbiology Microbiology Date/Time Source Procedure Growth Status 12/14/24 19:10 Blood Blood Culture - Preliminary NO GROWTH AFTER 72 HOURS OF INCUBATION. Resulted Assessment/Plan Assessment/Plan Sepsis due to UTI UTI Generalized weakness Bladder cancer Hypotension Tachycardia Moderate protein malnutrition Chronic Stiles catheter Acute kidney injury, improved Hyponatremia Hypomagnesemia Plan Continue IV Rocephin Start physical therapy Continue Glucerna Colace as needed Out of bed as tolerated Was discussed with the son over the phone The patient has [facility] bladder [facility] Discharge planning possibly for tomorrow Full code Advance directives discussed for 20 minutes Plan discussed with: Patient, Son My Orders Orders - LOU MONTOYA MD Procedure Category Date Status Time Pt Request For Service PT 12/18/24 Logged 11:29 Date of Service: Dec 18, 2024 Billing Provider: LOU MONTOYA MD Common Visit Codes: [id number] INP/OBS CARE(HIGH) Secondary Visit Codes: [id number] CARE PLAN 30 MINUTES LOU MONTOYA MD Dec 18, 2024 11:35
--- NOTE | 2024-12-18 11:45 | ECG ---
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
[2024-12-18 13:37] VITALS: BP 106/56; PULSE 110; RESP 19; TEMP 97.6; O2SAT 98
[2024-12-18 17:16] VITALS: BP 107/57; PULSE 116; RESP 19; TEMP 97.7; O2SAT 95
[2024-12-18 20:00] VITALS: PULSE 119
[2024-12-18 21:00] VITALS: BP 134/86; PULSE 117; RESP 18; TEMP 97.5; O2SAT 90
--- NOTE | 2024-12-18 22:00 | DVHPN2 ---
Progress Note - Dictate Date Seen: Dec 18, 2024 Medical Necessity Reason Pt with a Central, PICC or Fol: No Subjective Patient was seen and evaluated in follow up. No overnight events. Patient is complaining of lower extremity pain and wellness. BS are in the 150-200s. Telemetry reviewed. vital signs Vital Sign Date Time Temp Pulse Resp B/P (MAP) Pulse Ox O2 Delivery O2 Flow Rate FiO2 12/18/24 21:00 97.5 117 18 134/86 (102) 90 97.5 12/18/24 08:15 Nasal Cannula* 2 28 Total Intake and Output 12/17/24 12/17/24 12/18/24 15:00 23:00 07:00 Intake Total 50 ml 225 ml 200 ml Output Total 700 ml 500 ml Balance 50 ml -475 ml -300 ml medications Current Medications Medications Dose Ordered Sig/Ney Route Start Time Stop Time Status Last Admin Dose Admin Ceftriaxone Sodium 50 ml @ 100 mls/hr DAILY@09 IV 12/15/24 09:00 12/18/24 09:24 100 MLS/HR Diagnostic Test (Pha) 1 strip ACHS 12/14/24 22:00 12/18/24 16:15 1 STRIP Insulin Human Regular HS SC 12/14/24 22:00 12/17/24 21:48 3 UNITS Insulin Human Regular AC SC 12/15/24 07:00 12/18/24 16:17 2 UNITS Dextrose 50 ml UD PRN IV 12/14/24 21:00 Sodium Chloride 10 ml Q8HR IV 12/14/24 22:00 12/18/24 13:26 10 ML Acetaminophen/ Hydrocodone Bitart 1 tab Q4HP PRN PO 12/14/24 21:00 Ondansetron HCl 4 mg Q4HP PRN IV 12/14/24 21:00 Docusate Sodium 100 mg BIDPRN PRN PO 12/14/24 21:00 Acetaminophen 650 mg Q6HP PRN PO 12/14/24 21:00 Nitroglycerin 0.4 mg Q5MINP PRN SL 12/14/24 22:30 Morphine Sulfate 2 mg Q30M PRN IV 12/14/24 22:30 Enteral Nutritional Formula 240 ml DAILY@BREAKFAST PO 12/18/24 08:00 12/18/24 09:19 240 ML objective GENERAL: Awake, alert, oriented. LUNGS: Clear. CARDIOVASCULAR: Heart sounds are good. ABDOMEN: Soft. laboratory and microbiology Laboratory Tests 12/17/24 11:51 Test 12/17/24 11:51 Range/Units Serum Glucose 131 H 74-106 mg/dL Problem List Sepsis likely secondary to urinary tract infection. Sinus tachycardia secondary to above. Bladder cancer. Chronic Stiles. Type 2 diabetes mellitus. Hypomagnesemia. Assessment/Plan Continued all current supportive medical care. IV antibiotics as ordered. Morphine and [place] for pain management. Nitro SL. Additional plan as per the hospital course. Dietary Evaluation Review Comments: 1) Initiate Glucerna qd d/t low PO intake 2) Continue to monitor PO intake, labs, and skin integrity Expected Outcomes/Goals: 1) appetite and labs to improve 2) wound to improve 3) f/u in 3-5 days Food and Nutrition Intake (Mod: <75% est energy req 7days Plan discussed with: Patient STEPHON BORGES MD Dec 18, 2024 22:00
[2024-12-19] VITALS (8 sets, daily range): BP systolic 98–115; BP diastolic 53–62; PULSE 107–119; RESP 16–18; TEMP 97.3–98.3; O2SAT 95–100
[2024-12-19 07:46] LABS: Basophils # (auto) 0.1 10 ^3/uL (0-0.2); Eosinophils # (auto) 0.3 10 ^3/uL (0-0.8); Lymphocytes # (auto) 1.1 10 ^3/uL (0.4-5.4)
[2024-12-19 07:47] LABS: Alanine Aminotransferase 12 U/L (7-40); Alkaline Phosphatase 108 U/L (46-116); Anion Gap 7 (5-15); BUN/Creatinine Ratio 25.3 (10.0-20.0); Blood Urea Nitrogen 23 mg/dL (9-23); Calcium 10.1 mg/dL (8.7-10.4); Carbon Dioxide 26 mmol/L (20-31); Chloride 102 mmol/L (98-107); Potassium 4.2 mmol/L (3.5-5.1)
[2024-12-19 07:48] LABS: Aspartate Aminotransferase 33 U/L (13-40); Basophils % (auto) 0.8 % (0.0-2.0); Bilirubin, Total 0.4 mg/dL (0.2-1.0); Eosinophils % (auto) 2.6 % (0.0-7.0); Hematocrit 26.9 % (41.0-53.0); Hemoglobin 8.4 g/dL (13.5-17.5); Lymphocytes % (auto) 10.1 % (10.0-50.0); Mean Corpuscular Hemoglobin 24.3 pg (28.0-32.0); Mean Corpuscular Hgb Conc. 31.1 g/dL (32.0-36.0); Mean Corpuscular Volume 78.3 fL (80.0-100.0); Monocytes # (auto) 0.9 10 ^3/uL (0-1.3); Monocytes % (auto) 7.6 % (0.0-12.0); Neutrophils # (auto) 8.9 10 ^3/uL (1.6-8.6); Neutrophils % (auto) 78.9 % (37.0-80.0); Nucleated Red Blood Cells % 0.1 %; Platelet Count (auto) 166 10^3/uL (140-450); Red Blood Cells 3.43 10^6/uL (4.5-5.90); Red Cell Distribution Width 17.2 % (11.8-14.3); Total Protein 6.5 g/dL (5.7-8.2); White Blood Cell 11.2 10^3/uL (4.4-10.8)
[2024-12-19 07:58] LABS: Glucose 135 mg/dL (74-106); Sodium 135 mmol/L (136-145)
[2024-12-19 07:59] LABS: Albumin 2.8 g/dL (3.2-4.8); Magnesium 1.5 mg/dL (1.6-2.6)
--- NOTE | 2024-12-19 10:30 | DVHPN2 ---
Subjective The major complaint is generalized weakness He is sitting up in the chair now He is working with physical therapy about walked only few feet Changes from previous H/P or p: Changes Eyes: No Pain, No Vision change, No Conjunctivae inflammation, No Eyelid inflammation, No Other, No Redness ENT: No Ear pain, No Ear discharge, No Nose pain, No Nose discharge, No Nose congestion, No Mouth pain, No Mouth swelling, No Throat pain, No Throat swelling, No Other Cardiovascular: No Chest Pain, No Palpitations, No Orthopnea, No Paroxysmal Noc. Dyspnea, No Edema, No Lt Headedness, No Other Respiratory: No Cough, No Dry, No Shortness of breath, No SOB with excertion, No Wheezing, No Hemoptysis, No Pleuritic Pain, No Sputum, No Other Gastrointestinal: No Nausea, No Vomiting, No Abdominal Pain, No Diarrhea, No Constipation, No Melena, No Hematochezia, No Other Genitourinary: No Dysuria, No Frequency, No Incontinence, No Hematuria, No Retention; Other (Stiles catheter in place) Musculoskeletal: No other, No neck pain, No shoulder pain, No arm pain, No back pain, No hand pain, No leg pain, No foot pain Skin: No Rash, No Lesions, No Jaundice, No Bruising, No Other Objective Vitals Vital Signs Date Time Temp Pulse Resp B/P (MAP) Pulse Ox O2 Delivery O2 Flow Rate FiO2 12/19/24 05:00 98.3 109 18 105/53 (70) 97 98.3 12/18/24 20:00 Nasal Cannula* 2 28 Intake/Output Intake and Output 12/19/24 07:00 Intake Total 1400 ml Output Total 1250 ml Balance 150 ml Intake Oral 1350 ml IV Total 50 ml Output Urine Total 1250 ml # Bowel Movements 2 General Appearance: Alert Lungs: Clear to auscultation Cardiovascular: Regular rate Medications Current Medications Medications Dose Ordered Sig/Ney Route Start Time Stop Time Status Last Admin Dose Admin Ceftriaxone Sodium 50 ml @ 100 mls/hr DAILY@09 IV 12/15/24 09:00 12/19/24 09:04 100 MLS/HR Diagnostic Test (Pha) 1 strip ACHS 12/14/24 22:00 12/19/24 06:15 1 STRIP Insulin Human Regular HS SC 12/14/24 22:00 12/18/24 22:34 3 UNITS Insulin Human Regular AC SC 12/15/24 07:00 12/18/24 16:17 2 UNITS Dextrose 50 ml UD PRN IV 12/14/24 21:00 Sodium Chloride 10 ml Q8HR IV 12/14/24 22:00 12/19/24 06:15 10 ML Acetaminophen/ Hydrocodone Bitart 1 tab Q4HP PRN PO 12/14/24 21:00 Ondansetron HCl 4 mg Q4HP PRN IV 12/14/24 21:00 Docusate Sodium 100 mg BIDPRN PRN PO 12/14/24 21:00 Acetaminophen 650 mg Q6HP PRN PO 12/14/24 21:00 Nitroglycerin 0.4 mg Q5MINP PRN SL 12/14/24 22:30 Morphine Sulfate 2 mg Q30M PRN IV 12/14/24 22:30 Enteral Nutritional Formula 240 ml DAILY@BREAKFAST PO 12/18/24 08:00 12/19/24 08:00 240 ML Magnesium Oxide 400 mg BID PO 12/19/24 10:00 UNV Laboratory Results Laboratory Tests 12/19/24 06:58 Chemistry Test 12/19/24 06:58 Albumin 2.8 g/dL (3.2-4.8) L Calcium Level 10.1 mg/dL (8.7-10.4) Magnesium Level 1.5 mg/dL (1.6-2.6) L Total Protein 6.5 g/dL (5.7-8.2) LFT Test 12/19/24 06:58 Alanine Aminotransferase (ALT) 12 U/L (7-40) Alkaline Phosphatase 108 U/L (46-116) Aspartate Amino Transferase (AST) 33 U/L (13-40) Total Bilirubin 0.4 mg/dL (0.2-1.0) Urinalysis Test 12/14/24 20:40 Urine Color Colorless (Yellow) Urine Clarity Ex.turbid (Clear) Urine pH 7.0 (5.0-9.0) Urine Specific [place] 1.012 (1.001-1.035) Urine Protein 1+ (Negative) H Urine Ketones Negative (Negative) Urine Blood 3+ /uL (Negative) H Urine Nitrite Negative (Negative) Urine Bilirubin Negative (Negative) Urine Urobilinogen Normal mg/dL (Negative) Urine Leukocyte Esterase 3+ /uL (Negative) Urine RBC 55 /hpf (0 - 3) Urine WBC Clumps Present /hpf (None Seen) Urine Microscopic WBC 119 /HPF (0-3) H Urine Squamous Epithelial Cells None seen /hpf (<5) Urine Bacteria Few /hpf (None Seen) H Urine Glucose Normal mg/dL (Normal) Microbiology Microbiology Date/Time Source Procedure Growth Status 12/14/24 19:10 Blood Blood Culture - Preliminary NO GROWTH AFTER 72 HOURS OF INCUBATION. Resulted Assessment/Plan Assessment/Plan Sepsis due to UTI UTI Generalized weakness Bladder cancer Hypotension Tachycardia Moderate protein malnutrition Chronic Stiles catheter Acute kidney injury, improved Hyponatremia Hypomagnesemia Plan 12/18/2024: Continue IV Rocephin Start physical therapy Continue Glucerna Colace as needed Out of bed as tolerated Was discussed with the son over the phone The patient has follow up at [facility] for his bladder cancer Discharge planning possibly for tomorrow Full code Advance directives discussed for 20 minutes 12/19/2024: Continue physical therapy Continue IV antibiotics Up in the chair as needed The patient is still very weak and therefore we will hold the patient in the hospital 1 more day and continue physical therapy discharge planning for tomorrow Hypomagnesemia: Replace p.o. Plan discussed with: Patient, Son My Orders Orders - LOU MONTOYA MD Procedure Category Date Status Time Pt Request For Service PT 12/18/24 Logged 11:29 Magnesium Oxide PHA 12/19/24 Logged Tablet (Mag-Ox Tablet) 10:00 Date of Service: Dec 19, 2024 Billing Provider: LOU MONTOYA MD Common Visit Codes: [id number] INP/OBS CARE(HIGH) LOU MONTOYA MD Dec 19, 2024 10:30
[2024-12-19] MEDS: MAGNESIUM OXIDE 400 MG TAB PO SCH (12:57)
--- NOTE | 2024-12-19 16:55 | DVHPN2 ---
Progress Note - Dictate Date Seen: Dec 19, 2024 Medical Necessity Reason Pt with a Central, PICC or Fol: No Subjective Patient was seen and evaluated in follow up. Patient is complaining of generalized weakness. The patient is working with physical therapy, only walked a few feet. WBC 11.2, HGB 8.4, HCT 26.9, MG 1.5. Telemetry reviewed. vital signs Vital Sign Date Time Temp Pulse Resp B/P (MAP) Pulse Ox O2 Delivery O2 Flow Rate FiO2 12/19/24 13:00 97.4 110 18 107/54 (71) 99 97.4 12/19/24 08:15 Nasal Cannula* 2 28 Total Intake and Output 12/18/24 12/18/24 12/19/24 15:00 23:00 07:00 Intake Total 50 ml 850 ml 500 ml Output Total 600 ml 650 ml Balance 50 ml 250 ml -150 ml medications Current Medications Medications Dose Ordered Sig/Ney Route Start Time Stop Time Status Last Admin Dose Admin Ceftriaxone Sodium 50 ml @ 100 mls/hr DAILY@09 IV 12/15/24 09:00 12/19/24 09:04 100 MLS/HR Diagnostic Test (Pha) 1 strip ACHS 12/14/24 22:00 12/19/24 16:22 1 STRIP Insulin Human Regular HS SC 12/14/24 22:00 12/18/24 22:34 3 UNITS Insulin Human Regular AC SC 12/15/24 07:00 12/19/24 16:27 2 UNITS Dextrose 50 ml UD PRN IV 12/14/24 21:00 Sodium Chloride 10 ml Q8HR IV 12/14/24 22:00 12/19/24 14:43 10 ML Acetaminophen/ Hydrocodone Bitart 1 tab Q4HP PRN PO 12/14/24 21:00 Ondansetron HCl 4 mg Q4HP PRN IV 12/14/24 21:00 Docusate Sodium 100 mg BIDPRN PRN PO 12/14/24 21:00 Acetaminophen 650 mg Q6HP PRN PO 12/14/24 21:00 Nitroglycerin 0.4 mg Q5MINP PRN SL 12/14/24 22:30 Morphine Sulfate 2 mg Q30M PRN IV 12/14/24 22:30 Enteral Nutritional Formula 240 ml DAILY@BREAKFAST PO 12/18/24 08:00 12/19/24 08:00 240 ML Magnesium Oxide 400 mg BID PO 12/19/24 10:00 12/19/24 12:57 400 MG objective GENERAL: Awake, alert, oriented. LUNGS: Clear. CARDIOVASCULAR: Heart sounds are good. ABDOMEN: Soft. laboratory and microbiology Laboratory Tests 12/19/24 06:58 Test 12/19/24 06:58 Range/Units Serum Glucose 135 H 74-106 mg/dL Problem List Sepsis likely secondary to urinary tract infection. Sinus tachycardia secondary to above. Bladder cancer. Chronic Stiles. Type 2 diabetes mellitus. Hypomagnesemia. Assessment/Plan Continued all current supportive medical care. IV antibiotics as ordered. Morphine and [place] for pain management. Nitro SL. Additional plan as per the hospital course. Dietary Evaluation Review Comments: 1) Initiate Glucerna qd d/t low PO intake 2) Continue to monitor PO intake, labs, and skin integrity Expected Outcomes/Goals: 1) appetite and labs to improve 2) wound to improve 3) f/u in 3-5 days Food and Nutrition Intake (Mod: <75% est energy req 7days Plan discussed with: Patient STEPHON BORGES MD Dec 19, 2024 16:55
[2024-12-19] MEDS: DOCUSATE SOD 100 MG CAP PO PRN (17:53)
[2024-12-19] MEDS: ACETAMINOPHEN 325 MG TAB PO PRN (21:56)
[2024-12-20 01:00] VITALS: BP 110/54; PULSE 109; RESP 17; TEMP 97.7; O2SAT 97
[2024-12-20 05:00] VITALS: BP 102/55; PULSE 107; RESP 16; TEMP 98.1; O2SAT 97
[2024-12-20 07:10] LABS: Anion Gap 8 (5-15); Carbon Dioxide 26 mmol/L (20-31); Chloride 100 mmol/L (98-107)
[2024-12-20 07:16] LABS: Glucose 96 mg/dL (74-106); Magnesium 1.7 mg/dL (1.6-2.6)
[2024-12-20 07:26] LABS: Blood Urea Nitrogen 26 mg/dL (9-23); Sodium 134 mmol/L (136-145)
[2024-12-20 08:00] VITALS: PULSE 103
[2024-12-20 09:00] VITALS: BP 101/52; PULSE 106; RESP 16; TEMP 97.8; O2SAT 95
--- NOTE | 2024-12-20 12:43 | ECG ---
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
--- NOTE | 2024-12-20 15:12 | DVHDS2 ---
Discharge Summary Date of Admission Dec 14, 2024 at 22:30 Date of Discharge: Dec 20, 2024 Labs/Diagnostic Data: Laboratory Results Test 12/20/24 12:06 12/20/24 06:30 12/19/24 06:58 12/15/24 20:52 POC Glucose 181 mg/dl (70-106) Sodium Level 134 mmol/L (136-145) Potassium Level 4.0 mmol/L (3.5-5.1) Chloride Level 100 mmol/L (98-107) Carbon Dioxide Level 26 mmol/L (20-31) Anion Gap 8 (5-15) Blood Urea Nitrogen 26 mg/dL (9-23) Creatinine 0.93 mg/dL (0.700-1.30) Glomerular Filtration Rate Calc 79 mL/min (>90) BUN/Creatinine Ratio 28.0 (10.0-20.0) Serum Glucose 96 mg/dL (74-106) Calcium Level 10.0 mg/dL (8.7-10.4) Magnesium Level 1.7 mg/dL (1.6-2.6) White Blood Count 11.2 10^3/uL (4.4-10.8) Red Blood Count 3.43 10^6/uL (4.5-5.90) Hemoglobin 8.4 g/dL (13.5-17.5) Hematocrit 26.9 % (41.0-53.0) Mean Corpuscular Volume 78.3 fL (80.0-100.0) Mean Corpuscular Hemoglobin 24.3 pg (28.0-32.0) Mean Corpuscular Hemoglobin Concent 31.1 g/dL (32.0-36.0) Red Cell Distribution Width 17.2 % (11.8-14.3) Platelet Count 166 10^3/uL (140-450) Mean Platelet Volume 11.0 fL (6.9-10.8) Neutrophils (%) (Auto) 78.9 % (37.0-80.0) Lymphocytes (%) (Auto) 10.1 % (10.0-50.0) Monocytes (%) (Auto) 7.6 % (0.0-12.0) Eosinophils (%) (Auto) 2.6 % (0.0-7.0) Basophils (%) (Auto) 0.8 % (0.0-2.0) Neutrophils # (Auto) 8.9 10 ^3/uL (1.6-8.6) Lymphocytes # (Auto) 1.1 10 ^3/uL (0.4-5.4) Monocytes # (Auto) 0.9 10 ^3/uL (0-1.3) Eosinophils # (Auto) 0.3 10 ^3/uL (0-0.8) Basophils # (Auto) 0.1 10 ^3/uL (0-0.2) Nucleated Red Blood Cells 0.1 % Total Bilirubin 0.4 mg/dL (0.2-1.0) Aspartate Amino Transferase (AST) 33 U/L (13-40) Alanine Aminotransferase (ALT) 12 U/L (7-40) Alkaline Phosphatase 108 U/L (46-116) Total Protein 6.5 g/dL (5.7-8.2) Albumin 2.8 g/dL (3.2-4.8) Lactic Acid Level 2.2 mmol/L (0.4-2.0) Test 12/15/24 06:02 12/14/24 22:05 12/14/24 20:40 12/14/24 19:10 Hemoglobin A1c 7.7 % A1C (<5.7) Triglycerides Level 96 mg/dL (< 150) Cholesterol Level 101 mg/dL (< 200) LDL Cholesterol 70 mg/dL (< 100) HDL Cholesterol 20 mg/dL (40-59) Thyroid Stimulating Hormone (TSH) 2.53 uIU/mL (0.55-4.78) Troponin I High Sensitivity 10 ng/L (</=54) Urine Color Colorless (Yellow) Urine Clarity Ex.turbid (Clear) Urine pH 7.0 (5.0-9.0) Urine Specific [place] 1.012 (1.001-1.035) Urine Protein 1+ (Negative) Urine Ketones Negative (Negative) Urine Blood 3+ /uL (Negative) Urine Nitrite Negative (Negative) Urine Bilirubin Negative (Negative) Urine Urobilinogen Normal mg/dL (Negative) Urine Leukocyte Esterase 3+ /uL (Negative) Urine RBC 55 /hpf (0 - 3) Urine WBC Clumps Present /hpf (None Seen) Urine Microscopic WBC 119 /HPF (0-3) Urine Squamous Epithelial Cells None seen /hpf (<5) Urine Bacteria Few /hpf (None Seen) Urine Glucose Normal mg/dL (Normal) Influenza Type A Antigen Negative (Negative) Influenza Type B Antigen Negative (Negative) SARS-CoV-2 Antigen (Rapid) Negative (NEGATIVE) B-Type Natriuretic Peptide 34.69 pg/mL (0-100) Other Laboratory Tests 12/20/24 06:30 12/19/24 06:58 Brief Hx & Hospital Course: Final diagnoses: Sepsis due to UTI UTI Generalized weakness Bladder cancer Hypotension Tachycardia Moderate protein malnutrition Chronic Stiles catheter Acute kidney injury, improved Hyponatremia Hypomagnesemia 89-year-old male was admitted for generalized weakness, he had UTI which was treated inpatient He has a Stiles catheter at home His weakness is severe and physical therapy saw him also and he was able to get out of bed eventually yesterday and today He has a history of bladder cancer which he follows with his oncologist Today he was able to get out of bed but he is not able to ambulate, we discussed his discharge planning with the his son who takes care of him at home and he prefers to take him home with home health and therefore the patient can be discharged home Home health was ordered Continue same home medications The patient finished his treatment for UTI so no need for more antibiotics Follow up with his primary care physician as soon as possible and with his oncologist as scheduled Condition at Discharge: Stable Final Diagnosis/Problems List Sepsis due to UTI UTI Generalized weakness Bladder cancer Hypotension Tachycardia Moderate protein malnutrition Chronic Stiles catheter Acute kidney injury, improved Hyponatremia Hypomagnesemia Discharge Disposition: Home with Health Services SNF Discharge Will this Physician continue t: No Discharge Instruct/Medications Diet: Cardiac 2g Na,low cholest Activity: No Restrictions, As Tolerated Follow Up/Referral: PCP as soon as possible Discharge Statement: "Patient was advised to return to the ER or call 911 if any headaches, dizziness, shortness of breath, chest pain, abdominal pain, bleeding, fevers, or worsening of medical condition. Patient was counseled about treatment plan, medications, possible side effects, patientverbalized understanding. All questions were answered to the best of my ability. This discharge took greater then 30 minutes in planning, reviewing documentation, counseling the patient, and discussing with other team members." ASSESSMENT ASSESSMENT Assessment Sepsis due to UTI UTI Generalized weakness Bladder cancer Hypotension Tachycardia Moderate protein malnutrition Chronic Stiles catheter Acute kidney injury, improved Hyponatremia Hypomagnesemia Date of Service: Dec 20, 2024 Billing Provider: LOU MONTOYA MD Common Visit Codes: [id number] DISCH DAY >30min LOU MONTOYA MD Dec 20, 2024 15:12
[2024-12-20 20:00] VITALS: PULSE 115; PULSE 117; RESP 18; O2SAT 94
[2024-12-20 21:00] VITALS: BP 98/53; PULSE 117; RESP 18; TEMP 98.1; O2SAT 94
--- NOTE | 2024-12-20 21:12 | DVHINCON2 ---
Date of service: Dec 20, 2024 Referring Physician Aliya Scanlon MD Reason for Consultation Pneumonia, sepsis. History of Present Illness An 89-year-old man with multiple past medical history including sepsis, diabetes mellitus, bladder cancer, and hypertension who presented to ED on 12/14/24 for tylor luation of generalized weakness. Patient reported symptoms progressively got worse with disorientation for the past 2 days, getting worse that prompted the visit. Patient is being followed from outside facility for bladder cancer, gets Stiles catheter replaced every month. ED workup showed WBC 19.2, hemoglobin 9.0, hematocrit 28.8, platelets 174, sodium 130, potassium 4.1, BUN 50, creatinine 1.50, GFR 45, glucose 192, lactic acid 4.8, troponin 13, BNP 34.69, albumin 2.8. Vitals were BP 102/49, heart rate 132 trending down to 115, temperature 97.4 F, O2 saturation 96% on room air. Chest x-ray revealing pulmonary congestion and edema, pneumonia. Urinalysis positive for urinary tract infection. Patient was admitted for further care and pulmonary consultation is requested for evaluation and management due to the above findings. Review of Systems: 14-point review of systems negative unless otherwise noted above. Past Medical History: Diabetes, bladder cancer, UTI, sepsis, HTN, cellulitis, obstructive uropathy, symptomatic anemia, hydronephrosis, bladder neoplasm Past Surgical History: Ureteral stent, indwelling Stiles catheter Medications: Reviewed. Allergies: No known drug allergies. Family History: No family history of premature CAD. No family history of lung disorders. Social History: Nonsmoker. No alcohol or illicit drug use. Family History: Patient reports no known family medical history. Allergies: Coded Allergies: NO KNOWN ALLERGIES (Unverified , 09/06/23) Home Meds Reported Medications Dutasteride (Avodart) 0.5 Mg Cap, 0.5 MG PO DAILY, CAP 06/15/24 Losartan Potassium (Losartan Potassium) 25 Mg Tab, 25 MG PO DAILY, TAB 06/15/24 Tadalafil (Cialis) 5 Mg Tab, 5 MG PO DAILY, TAB 06/15/24 Metformin Hydrochloride (Metformin Hcl) 1,000 Mg Tab, 1 TAB PO BID, #60 TAB 5 Refills 03/07/24 Discontinued Scripts Fluconazole (Diflucan) 200 Mg Tab, 1 TAB PO DAILY, #20 TAB Prov:BALDOMERO CHAVIRA MD 06/16/24 Ciprofloxacin Hcl (Cipro) 500 Mg Tab, 1 TAB PO BID, #20 TAB Prov:BALDOMERO CHAVIRA MD 06/16/24 Vital Signs Vital Signs Date Time Temp Pulse Resp B/P (MAP) Pulse Ox O2 Delivery O2 Flow Rate FiO2 12/20/24 09:00 97.8 106 16 101/52 (68) 95 97.8 12/20/24 08:15 Nasal Cannula* 2 28 Physical Exam Gen.: Patient lying in bed in no apparent distress. On supplemental oxygen. Head: Normocephalic, atraumatic. Eyes: EOMI/PERRLA. Ears: Normal hearing. Normal anatomy. Neck/trachea: Trachea midline, supple. Nose: Normal external anatomy. Mouth: Moist mucous membranes. Chest: Decreased air entry bilaterally. No wheezing or rhonchi. Cardiovascular: Positive S1, positive S2. Regular rate and rhythm. Abdomen: Positive bowel sounds in all 4 quadrants. Soft, non-tender, non- distended. : Deferred. Rectal: Deferred. Skin: Warm, dry. Intact. Extremities: 2+ radial pulses bilaterally. No lower extremity edema. Neuro: Awake, alert, oriented x3. No gross motor or sensory deficits. Cranial nerves II through XII intact. Gait not assessed. Labs/Diagnostic Data Labs Test 12/20/24 16:55 12/20/24 06:30 12/19/24 06:58 12/15/24 20:52 Range/Units POC Glucose 164 H 70-106 mg/dl Sodium Level 134 L 136-145 mmol/L Potassium Level 4.0 3.5-5.1 mmol/L Chloride Level 100 98-107 mmol/L Carbon Dioxide Level 26 20-31 mmol/L Anion Gap 8 5-15 Blood Urea Nitrogen 26 H 9-23 mg/dL Creatinine 0.93 0.700-1.30 mg/dL Glomerular Filtration Rate Calc 79 >90 mL/min BUN/Creatinine Ratio 28.0 H 10.0-20.0 Serum Glucose 96 74-106 mg/dL Calcium Level 10.0 8.7-10.4 mg/dL Magnesium Level 1.7 1.6-2.6 mg/dL White Blood Count 11.2 H 4.4-10.8 10^3/uL Red Blood Count 3.43 L 4.5-5.90 10^6/uL Hemoglobin 8.4 L 13.5-17.5 g/dL Hematocrit 26.9 L 41.0-53.0 % Mean Corpuscular Volume 78.3 L 80.0-100.0 fL Mean Corpuscular Hemoglobin 24.3 L 28.0-32.0 pg Mean Corpuscular Hemoglobin Concent 31.1 L 32.0-36.0 g/dL Red Cell Distribution Width 17.2 H 11.8-14.3 % Platelet Count 166 140-450 10^3/uL Mean Platelet Volume 11.0 H 6.9-10.8 fL Neutrophils (%) (Auto) 78.9 37.0-80.0 % Lymphocytes (%) (Auto) 10.1 10.0-50.0 % Monocytes (%) (Auto) 7.6 0.0-12.0 % Eosinophils (%) (Auto) 2.6 0.0-7.0 % Basophils (%) (Auto) 0.8 0.0-2.0 % Neutrophils # (Auto) 8.9 H 1.6-8.6 10 ^3/uL Lymphocytes # (Auto) 1.1 0.4-5.4 10 ^3/uL Monocytes # (Auto) 0.9 0-1.3 10 ^3/uL Eosinophils # (Auto) 0.3 0-0.8 10 ^3/uL Basophils # (Auto) 0.1 0-0.2 10 ^3/uL Nucleated Red Blood Cells 0.1 % Total Bilirubin 0.4 0.2-1.0 mg/dL Aspartate Amino Transferase (AST) 33 13-40 U/L Alanine Aminotransferase (ALT) 12 7-40 U/L Alkaline Phosphatase 108 46-116 U/L Total Protein 6.5 5.7-8.2 g/dL Albumin 2.8 L 3.2-4.8 g/dL Lactic Acid Level 2.2 *H 0.4-2.0 mmol/L Test 12/15/24 06:02 12/14/24 22:05 12/14/24 20:40 12/14/24 19:10 Range/Units Hemoglobin A1c 7.7 H <5.7 % A1C Triglycerides Level 96 < 150 mg/dL Cholesterol Level 101 < 200 mg/dL LDL Cholesterol 70 < 100 mg/dL HDL Cholesterol 20 L 40-59 mg/dL Thyroid Stimulating Hormone (TSH) 2.53 0.55-4.78 uIU/mL Troponin I High Sensitivity 10 </=54 ng/L Urine Color Colorless Yellow Urine Clarity Ex.turbid Clear Urine pH 7.0 5.0-9.0 Urine Specific [place] 1.012 1.001-1.035 Urine Protein 1+ H Negative Urine Ketones Negative Negative Urine Blood 3+ H Negative /uL Urine Nitrite Negative Negative Urine Bilirubin Negative Negative Urine Urobilinogen Normal Negative mg/dL Urine Leukocyte Esterase 3+ Negative /uL Urine RBC 55 0 - 3 /hpf Urine WBC Clumps Present None Seen /hpf Urine Microscopic WBC 119 H 0-3 /HPF Urine Squamous Epithelial Cells None seen <5 /hpf Urine Bacteria Few H None Seen /hpf Urine Glucose Normal Normal mg/dL Influenza Type A Antigen Negative Negative Influenza Type B Antigen Negative Negative SARS-CoV-2 Antigen (Rapid) Negative NEGATIVE B-Type Natriuretic Peptide 34.69 0-100 pg/mL Microbiology Date/Time Source Procedure Growth Status 12/14/24 19:10 Blood Blood Culture - Final NO GROWTH AFTER 5 DAYS OF INCUBATION. Complete Assessment Impression: Acute hypoxic respiratory failure Pneumonia likely gram negative Dependence on supplemental oxygen Sepsis due to UTI Urinary tract infection Bladder cancer Hypotension, resolved Tachycardia Moderate protein malnutrition Chronic Stiles catheter Acute kidney injury, improved Hyponatremia Hypomagnesemia Plan: Supplemental oxygen Titrate to keep O2 sats above 92%. Continue antibiotics Incentive spirometry Monitor renal function. Monitor electrolytes. Supplement as necessary. Magnesium supplementation Monitor ins and outs. Glucerna for nutritional support Accu-Cheks, ISS. DVT prophylaxis. Prognosis: Poor given patient's multiple co-morbidities. Rest of plan per hospitalist and other consultants. Thank you, Dr. Scanlon, for allowing me to participate in this patient's care. Further recommendations will depend on the patient's clinical course. Please do not hesitate to contact me if you have any questions or concerns. This medical document was created using an electronic medical record system with [employer] dictation system. Although these documentations are being carefully reviewed, there may still be some phonetic and typographical changes. The errors are purely typographical, due to imperfection on the software program, and do not reflect any compromise in the patient's medical care. Plan discussed with: Patient, Other (RN/Dr. Scanlon) MORENO DURHAM MD Dec 20, 2024 21:12
--- NOTE | 2024-12-20 22:18 | DVHPN2 ---
Progress Note - Dictate Date Seen: Dec 20, 2024 Medical Necessity Reason Pt with a Central, PICC or Fol: No Subjective Patient was seen and evaluated in follow up. Patient is complaining of generalized weakness. Patient is working with PT. BUN 26. Telemetry reviewed. vital signs Vital Sign Date Time Temp Pulse Resp B/P (MAP) Pulse Ox O2 Delivery O2 Flow Rate FiO2 12/20/24 09:00 97.8 106 16 101/52 (68) 95 97.8 12/19/24 20:00 Nasal Cannula* 2 28 Total Intake and Output 12/19/24 12/19/24 12/20/24 15:00 23:00 07:00 Intake Total 50 ml 680 ml 200 ml Output Total 1500 ml Balance 50 ml 680 ml -1300 ml medications Current Medications Medications Dose Ordered Sig/Ney Route Start Time Stop Time Status Last Admin Dose Admin Ceftriaxone Sodium 50 ml @ 100 mls/hr DAILY@09 IV 12/15/24 09:00 12/20/24 09:43 100 MLS/HR Diagnostic Test (Pha) 1 strip ACHS 12/14/24 22:00 12/20/24 06:43 1 STRIP Insulin Human Regular HS SC 12/14/24 22:00 12/19/24 21:57 3 UNITS Insulin Human Regular AC SC 12/15/24 07:00 12/19/24 16:27 2 UNITS Dextrose 50 ml UD PRN IV 12/14/24 21:00 Sodium Chloride 10 ml Q8HR IV 12/14/24 22:00 12/20/24 06:42 10 ML Acetaminophen/ Hydrocodone Bitart 1 tab Q4HP PRN PO 12/14/24 21:00 Ondansetron HCl 4 mg Q4HP PRN IV 12/14/24 21:00 Docusate Sodium 100 mg BIDPRN PRN PO 12/14/24 21:00 12/19/24 17:53 100 MG Acetaminophen 650 mg Q6HP PRN PO 12/14/24 21:00 12/19/24 21:56 650 MG Nitroglycerin 0.4 mg Q5MINP PRN SL 12/14/24 22:30 Morphine Sulfate 2 mg Q30M PRN IV 12/14/24 22:30 Enteral Nutritional Formula 240 ml DAILY@BREAKFAST PO 12/18/24 08:00 12/20/24 09:42 240 ML Magnesium Oxide 400 mg BID PO 12/19/24 10:00 12/20/24 09:42 400 MG objective GENERAL: Awake, alert, oriented. LUNGS: Clear. CARDIOVASCULAR: Heart sounds are good. ABDOMEN: Soft. laboratory and microbiology Laboratory Tests 12/20/24 06:30 12/19/24 06:58 Test 12/20/24 06:30 Range/Units Serum Glucose 96 74-106 mg/dL Problem List Sepsis likely secondary to urinary tract infection. Sinus tachycardia secondary to above. Bladder cancer. Chronic Stiles. Type 2 diabetes mellitus. Hypomagnesemia. Assessment/Plan Continued all current supportive medical care. IV antibiotics as ordered. Morphine and [place] for pain management. Nitro SL. Additional plan as per the hospital course. Dietary Evaluation Review Comments: 1) Initiate Glucerna qd d/t low PO intake 2) Continue to monitor PO intake, labs, and skin integrity Expected Outcomes/Goals: 1) appetite and labs to improve 2) wound to improve 3) f/u in 3-5 days Food and Nutrition Intake (Mod: <75% est energy req 7days Plan discussed with: Patient STEPHON BORGES MD Dec 20, 2024 12:20
[2024-12-21] VITALS (8 sets, daily range): BP systolic 103–114; BP diastolic 53–59; PULSE 108–118; RESP 16–18; TEMP 36.3; O2SAT 94–96
--- NOTE | 2024-12-21 10:55 | DVHPN2 ---
Subjective Doing well No new complaints except for weakness He was supposed to go home yesterday but we are waiting on arrangements for home health Changes from previous H/P or p: Changes Eyes: No Pain, No Vision change, No Conjunctivae inflammation, No Eyelid inflammation, No Other, No Redness ENT: No Ear pain, No Ear discharge, No Nose pain, No Nose discharge, No Nose congestion, No Mouth pain, No Mouth swelling, No Throat pain, No Throat swelling, No Other Cardiovascular: No Chest Pain, No Palpitations, No Orthopnea, No Paroxysmal Noc. Dyspnea, No Edema, No Lt Headedness, No Other Respiratory: No Cough, No Dry, No Shortness of breath, No SOB with excertion, No Wheezing, No Hemoptysis, No Pleuritic Pain, No Sputum, No Other Gastrointestinal: No Nausea, No Vomiting, No Abdominal Pain, No Diarrhea, No Constipation, No Melena, No Hematochezia, No Other Genitourinary: No Dysuria, No Frequency, No Incontinence, No Hematuria, No Retention; Other (Stiles catheter in place) Musculoskeletal: No other, No neck pain, No shoulder pain, No arm pain, No back pain, No hand pain, No leg pain, No foot pain Skin: No Rash, No Lesions, No Jaundice, No Bruising, No Other Objective Vitals Vital Signs Date Time Temp Pulse Resp B/P (MAP) Pulse Ox O2 Delivery O2 Flow Rate FiO2 12/21/24 09:00 97.3 112 16 108/59 (75) 96 97.3 12/21/24 08:15 Room Air* 0 21 Intake/Output Intake and Output 12/21/24 07:00 Intake Total 910 ml Output Total 1000 ml Balance -90 ml Intake Oral 860 ml IV Total 50 ml Output Urine Total 1000 ml General Appearance: Alert Lungs: Clear to auscultation Cardiovascular: Regular rate Medications Current Medications Medications Dose Ordered Sig/Ney Route Start Time Stop Time Status Last Admin Dose Admin Ceftriaxone Sodium 50 ml @ 100 mls/hr DAILY@09 IV 12/15/24 09:00 12/21/24 08:52 100 MLS/HR Diagnostic Test (Pha) 1 strip ACHS 12/14/24 22:00 12/21/24 06:11 1 STRIP Insulin Human Regular HS SC 12/14/24 22:00 12/20/24 21:19 2 UNITS Insulin Human Regular AC SC 12/15/24 07:00 12/20/24 17:04 3 UNITS Dextrose 50 ml UD PRN IV 12/14/24 21:00 Sodium Chloride 10 ml Q8HR IV 12/14/24 22:00 12/21/24 06:11 10 ML Acetaminophen/ Hydrocodone Bitart 1 tab Q4HP PRN PO 12/14/24 21:00 Ondansetron HCl 4 mg Q4HP PRN IV 12/14/24 21:00 Docusate Sodium 100 mg BIDPRN PRN PO 12/14/24 21:00 12/19/24 17:53 100 MG Acetaminophen 650 mg Q6HP PRN PO 12/14/24 21:00 12/19/24 21:56 650 MG Nitroglycerin 0.4 mg Q5MINP PRN SL 12/14/24 22:30 Morphine Sulfate 2 mg Q30M PRN IV 12/14/24 22:30 Enteral Nutritional Formula 240 ml DAILY@BREAKFAST PO 12/18/24 08:00 12/21/24 08:52 240 ML Magnesium Oxide 400 mg BID PO 12/19/24 10:00 12/21/24 08:57 400 MG Laboratory Results Laboratory Tests 12/19/24 06:58 12/20/24 06:30 Urinalysis Test 12/14/24 20:40 Urine Color Colorless (Yellow) Urine Clarity Ex.turbid (Clear) Urine pH 7.0 (5.0-9.0) Urine Specific [place] 1.012 (1.001-1.035) Urine Protein 1+ (Negative) H Urine Ketones Negative (Negative) Urine Blood 3+ /uL (Negative) H Urine Nitrite Negative (Negative) Urine Bilirubin Negative (Negative) Urine Urobilinogen Normal mg/dL (Negative) Urine Leukocyte Esterase 3+ /uL (Negative) Urine RBC 55 /hpf (0 - 3) Urine WBC Clumps Present /hpf (None Seen) Urine Microscopic WBC 119 /HPF (0-3) H Urine Squamous Epithelial Cells None seen /hpf (<5) Urine Bacteria Few /hpf (None Seen) H Urine Glucose Normal mg/dL (Normal) Microbiology Microbiology Date/Time Source Procedure Growth Status 12/14/24 19:10 Blood Blood Culture - Final NO GROWTH AFTER 5 DAYS OF INCUBATION. Complete Assessment/Plan Assessment/Plan Sepsis due to UTI UTI Generalized weakness Bladder cancer Hypotension Tachycardia Moderate protein malnutrition Chronic Stiles catheter Acute kidney injury, improved Hyponatremia Hypomagnesemia Plan 12/18/2024: Continue IV Rocephin Start physical therapy Continue Glucerna Colace as needed Out of bed as tolerated Was discussed with the son over the phone The patient has follow up at [facility] for his bladder cancer Discharge planning possibly for tomorrow Full code Advance directives discussed for 20 minutes 12/19/2024: Continue physical therapy Continue IV antibiotics Up in the chair as needed The patient is still very weak and therefore we will hold the patient in the hospital 1 more day and continue physical therapy discharge planning for tomorrow Hypomagnesemia: Replace p.o. 12/21/2024: Continue current management pending discharge Discharged home once the home health is arranged for physical therapy at home Plan discussed with: Patient, Son My Orders Orders - LOU MONTOYA MD Procedure Category Date Status Time * Project Specialist CONS 12/20/24 Transmitted Consult Discharge DISCHARGE 12/21/24 Transmitted 11:34 Date of Service: Dec 21, 2024 Billing Provider: LOU MONTOYA MD Common Visit Codes: [id number] INP/OBS CARE(HIGH) LOU MONTOYA MD Dec 21, 2024 10:55
--- NOTE | 2024-12-21 14:35 | DVHPN2 ---
Progress Note - Dictate Date Seen: Dec 21, 2024 Medical Necessity Reason Pt with a Central, PICC or Fol: No Subjective Patient was seen and evaluated in follow up. Patient is complaining of generalized weakness. HH arrangements are being arranged by CM. Telemetry reviewed. vital signs Vital Sign Date Time Temp Pulse Resp B/P (MAP) Pulse Ox O2 Delivery O2 Flow Rate FiO2 12/21/24 09:00 97.3 112 16 108/59 (75) 96 97.3 12/21/24 08:15 Room Air* 0 21 Total Intake and Output 12/20/24 12/20/24 12/21/24 15:00 23:00 07:00 Intake Total 50 ml 460 ml 400 ml Output Total 1000 ml Balance 50 ml -540 ml 400 ml medications Current Medications Medications Dose Ordered Sig/Ney Route Start Time Stop Time Status Last Admin Dose Admin Ceftriaxone Sodium 50 ml @ 100 mls/hr DAILY@09 IV 12/15/24 09:00 12/21/24 08:52 100 MLS/HR Diagnostic Test (Pha) 1 strip ACHS 12/14/24 22:00 12/21/24 11:12 1 STRIP Insulin Human Regular HS SC 12/14/24 22:00 12/20/24 21:19 2 UNITS Insulin Human Regular AC SC 12/15/24 07:00 12/21/24 11:22 3 UNITS Dextrose 50 ml UD PRN IV 12/14/24 21:00 Sodium Chloride 10 ml Q8HR IV 12/14/24 22:00 12/21/24 11:12 10 ML Acetaminophen/ Hydrocodone Bitart 1 tab Q4HP PRN PO 12/14/24 21:00 Ondansetron HCl 4 mg Q4HP PRN IV 12/14/24 21:00 Docusate Sodium 100 mg BIDPRN PRN PO 12/14/24 21:00 12/19/24 17:53 100 MG Acetaminophen 650 mg Q6HP PRN PO 12/14/24 21:00 12/19/24 21:56 650 MG Nitroglycerin 0.4 mg Q5MINP PRN SL 12/14/24 22:30 Morphine Sulfate 2 mg Q30M PRN IV 12/14/24 22:30 Enteral Nutritional Formula 240 ml DAILY@BREAKFAST PO 12/18/24 08:00 12/21/24 08:52 240 ML Magnesium Oxide 400 mg BID PO 12/19/24 10:00 12/21/24 08:57 400 MG objective GENERAL: Awake, alert, oriented. LUNGS: Clear. CARDIOVASCULAR: Heart sounds are good. ABDOMEN: Soft. laboratory and microbiology Laboratory Tests 12/20/24 06:30 12/19/24 06:58 Test 12/20/24 06:30 Range/Units Serum Glucose 96 74-106 mg/dL Problem List Sepsis likely secondary to urinary tract infection. Sinus tachycardia secondary to above. Bladder cancer. Chronic Stiles. Type 2 diabetes mellitus. Hypomagnesemia. Assessment/Plan Continued all current supportive medical care. Morphine and [place] for pain management. IV antibiotics as ordered. Nitro SL. Additional plan as per the hospital course. Dietary Evaluation Review Comments: 1) Initiate Glucerna qd d/t low PO intake 2) Continue to monitor PO intake, labs, and skin integrity Expected Outcomes/Goals: 1) appetite and labs to improve 2) wound to improve 3) f/u in 3-5 days Food and Nutrition Intake (Mod: <75% est energy req 7days Plan discussed with: Patient STEPHON BORGES MD Dec 21, 2024 12:42
--- NOTE | 2024-12-21 23:34 | DVHPN2 ---
Progress Note - Dictate Date Seen: Dec 21, 2024 Medical Necessity Reason Pt with a Central, PICC or Fol: Yes The following are medically ne: Marquez Catheter Reason for marquez catheter: Strict I&O Subjective Patient seen and examined at bedside. Breathing comfortably on room air. Overnight events reviewed. vital signs Vital Sign Date Time Temp Pulse Resp B/P (MAP) Pulse Ox O2 Delivery O2 Flow Rate FiO2 12/21/24 16:55 98.1 116 17 114/57 (76) 95 98.1 12/21/24 08:15 Room Air* 0 21 Total Intake and Output 12/20/24 12/20/24 12/21/24 15:00 23:00 07:00 Intake Total 50 ml 460 ml 400 ml Output Total 1000 ml Balance 50 ml -540 ml 400 ml objective Gen.: Patient lying in bed in no apparent distress. Breathing on room air. Head: Normocephalic, atraumatic. Eyes: EOMI/PERRLA. Ears: Normal hearing. Normal anatomy. Neck/trachea: Trachea midline, supple. Nose: Normal external anatomy. Mouth: Moist mucous membranes. Chest: Decreased air entry bilaterally. No wheezing or rhonchi. Cardiovascular: Positive S1, positive S2. Regular rate and rhythm. Abdomen: Positive bowel sounds in all 4 quadrants. Soft, non-tender, non- distended. : Deferred. Rectal: Deferred. Skin: Warm, dry. Intact. Extremities: 2+ radial pulses bilaterally. No lower extremity edema. Neuro: Awake, alert, oriented x3. No gross motor or sensory deficits. Cranial nerves II through XII intact. Gait not assessed. laboratory and microbiology Laboratory Tests 12/20/24 06:30 12/19/24 06:58 Test 12/20/24 06:30 Range/Units Serum Glucose 96 74-106 mg/dL Assessment/Plan Impression: Pneumonia Sepsis due to UTI Urinary tract infection Bladder cancer Hypotension Tachycardia Moderate protein malnutrition Chronic Marquez catheter Acute kidney injury, improved Hyponatremia Hypomagnesemia Events: Tapered from supplemental O2 to room air Supplemental oxygen PRN Improved O2 requirements Continue antibiotics Patient is stable for discharge from the pulmonary standpoint. Labs and imaging reviewed. Rest of plan as noted below. Plan: Supplemental oxygen PRN Titrate to keep O2 sats above 92%. Continue antibiotics Incentive spirometry Monitor renal function. Monitor electrolytes. Supplement as necessary. Magnesium supplementation Monitor ins and outs. Glucerna for nutritional support Accu-Cheks, ISS PRN. DVT prophylaxis. Prognosis: Guarded given patient's multiple co-morbidities. Rest of plan per hospitalist and other consultants. Thank you, Dr. Scanlon, for allowing me to participate in this patient's care. Further recommendations will depend on the patient's clinical course. Please do not hesitate to contact me if you have any questions or concerns. This medical document was created using an electronic medical record system with [employer] dictation system. Although these documentations are being carefully reviewed, there may still be some phonetic and typographical changes. The errors are purely typographical, due to imperfection on the software program, and do not reflect any compromise in the patient's medical care. Dietary Evaluation Review Comments: 1) Initiate Glucerna qd d/t low PO intake 2) Continue to monitor PO intake, labs, and skin integrity Expected Outcomes/Goals: 1) appetite and labs to improve 2) wound to improve 3) f/u in 3-5 days Food and Nutrition Intake (Mod: <75% est energy req 7days Plan discussed with: Patient, Other (ELIDIA Elizabeth) MORENO DURHAM MD Dec 21, 2024 23:34
== END 2024-12-21 17:00 | disposition home health service (06) | DRG 871 ==
LOC: ER 18:06 → TELE 22:30 → TELE-EAST 12-15 12:30 → TELE 12-19 15:20 → EAST 12-19 15:27 → OVERFLOW 12-20 13:07 → TELE-EAST 12-20 13:13
PROVIDERS: ADMIT Nurse Practitioner Family; ATTEND Internal Medicine Geriatric Medicine
DX: A41.50 Gram-negative sepsis, unspecified (principal); J15.69 Pneumonia due to other Gram-negative bacteria; J96.01 Acute respiratory failure with hypoxia; J15.9 Unspecified bacterial pneumonia; E87.1 Hypo-osmolality and hyponatremia; E44.0 Moderate protein-calorie malnutrition; N17.9 Acute kidney failure, unspecified; N39.0 Urinary tract infection, site not specified; Z20.822 Contact with and (suspected) exposure to COVID-19; I10 Essential (primary) hypertension; E11.9 Type 2 diabetes mellitus without complications; E83.42 Hypomagnesemia; E88.09 Other disorders of plasma-protein metabolism, not elsewhere classified; Z85.51 Personal history of malignant neoplasm of bladder; Z87.891 Personal history of nicotine dependence; Z99.81 Dependence on supplemental oxygen; Z79.899 Other long term (current) drug therapy; Z68.28 Body mass index [BMI] 28.0-28.9, adult; Z79.4 Long term (current) use of insulin
CPT/HCPCS: 36415; 71045; 80048; 80053; 80061; 81001; 82962; 83036; 83605; 83735; 83880; 84443; 84484; 85025; 86850; 86900; 86901; 87040; 87426; 87804; 93005; 93306; 96365; 97110; 97116; 97163; 97530; G0378; J1815